=== PATIENT | female | born 1940 | race Caucasian/White ===

== ENCOUNTER → 2016-03-30 | Outpatient (CLI) | payer OTHER ==
[~2016-03-30] MED LIST: COEN100C28 PO; GLUCTAB18 PO; MULT-190 PO; MULTTAB58 PO; OMEG10007 PO
--- NOTE | 2016-03-30 13:50 | DIAGNOSTIC IMAGING REPORT ---
RIGHT WRIST MIN 3 VIEWS ROUTINE CLINICAL HISTORY: Right wrist pain. COMPARISON: Right wrist radiographs January 22, 2016 and February 27, 2016. FINDINGS: Alignment of the possible nondisplaced distal right radial fracture with extension to articular surface is unchanged. No additional fractures are identified. 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 IMPRESSION: 1. No change in alignment of the possible nondisplaced distal right radial fracture. 2. Severe arthritis of the right first carpometacarpal joint and triscaphe joint. Electronically signed by: Yanick Escalona M.D. 03/30/2016 1:49 PM
--- NOTE | 2016-03-30 15:08 | DIAGNOSTIC IMAGING REPORT ---
RIGHT ELBOW MIN 3 VIEWS CLINICAL HISTORY: Right elbow pain COMPARISON: 02/27/2016 DISCUSSION: There is been no change in alignment of the radial neck fracture. Early internal callus formation is suspected. IMPRESSION: No change in the alignment of the radial neck fracture. Electronically signed by: Jairo Hernandez M.D. 03/30/2016 3:06 PM
== END | disposition home or self-care (01) ==
LOC: C.RDSM 15:17
PROVIDERS: ATTEND Physical Medicine & Rehabilitation Sports Medicine
DX: S52.131A Displaced fracture of neck of right radius, initial encounter for closed fracture (principal); X58.XXXA Exposure to other specified factors, initial encounter; M18.11 Unilateral primary osteoarthritis of first carpometacarpal joint, right hand; M25.531 Pain in right wrist

== ENCOUNTER → 2016-04-01 | Outpatient (CLI) | payer OTHER | END | disposition home or self-care (01) | LOC: C.LAB1850 10:04 | PROVIDERS: ATTEND Obstetrics & Gynecology | DX: Z85.43 Personal history of malignant neoplasm of ovary (principal) ==

== ENCOUNTER → 2016-09-09 | Outpatient (CLI) | payer OTHER ==
--- NOTE | 2016-09-09 10:40 | DIAGNOSTIC IMAGING REPORT ---
ULTRASOUND RIGHT VENOUS DOPP LOWER EXT UNILAT CLINICAL HISTORY: Right leg pain. Cough. COMPARISON STUDY: No previous studies for comparison. FINDINGS: Real-time and color flow Doppler imaging were performed. Flow was seen within the femoral, popliteal and calf veins with no intraluminal thrombus demonstrated. The saphenous vein is patent. IMPRESSION: No evidence of right lower extremity DVT. Electronically signed by: Jairo Hernandez M.D. 09/09/2016 10:39 AM Dictated Date/Time: 09/09/2016 10:38 AM
--- NOTE | 2016-09-09 10:47 | DIAGNOSTIC IMAGING REPORT ---
CHEST 2 VIEWS ROUTINE HISTORY: Right foot/ANKLE SWELLING, R/O DVT, COUGH COMPARISON: Chest 02/08/2015. FINDINGS: Possible 1 cm nodule at the base of the right lower lobe. Mild bibasilar interstitial thickening. This is likely chronic. No new focal lung consolidations to suggest pneumonia. No evidence for pulmonary edema. The heart is normal in size. No pleural effusions. No pneumothorax. IMPRESSION: 1. No focal lung consolidations to suggest pneumonia. 2. Mild bibasilar interstitial thickening which is likely chronic. 3. Possible 1 cm nodule within the right lung base. Follow-up nonemergent chest CT is recommended for further evaluation. Electronically signed by: Jonathan Rebolledo M.D. 09/09/2016 10:46 AM Dictated Date/Time: 09/09/2016 10:44 AM
--- NOTE | 2016-09-14 12:41 | CODING QUERY MEDICAL NECESSITY ---
SUPPORTING DIAGNOSIS NEEDED A supporting diagnosis is required for the test/procedure performed on this patient in order for us to be reimbursed by the patient's insurance. Please provide a supporting diagnosis for the following test/procedure listed below next to the test name along with your signature. *If there is no additional diagnosis for this patient that would support the following test/procedure please document that below next to the test/procedure. Test(s)/Procedure(s) that require a supporting diagnosis: * US VENOUS UNIL LWR EXT DOPPLER DIAGNOSIS: Provider Signature: Date: Thank you Samantha Marcano [employer] Once completed, please kindly fax back to [phone] For questions please call [phone]
== END | disposition home or self-care (01) ==
LOC: C.ULTRBC 10:06
PROVIDERS: ATTEND Nurse Practitioner Family
DX: M25.471 Effusion, right ankle (principal); M79.89 Other specified soft tissue disorders; R05 Cough; Z85.43 Personal history of malignant neoplasm of ovary

== ENCOUNTER → 2016-09-28 | Outpatient (CLI) | payer OTHER | END | disposition home or self-care (01) | LOC: C.LAB1850 11:58 | PROVIDERS: ATTEND Obstetrics & Gynecology | DX: Z85.43 Personal history of malignant neoplasm of ovary (principal) ==

== ENCOUNTER → 2016-11-04 | Outpatient (CLI) | payer OTHER ==
--- NOTE | 2016-11-04 12:24 | MAMMOGRAPHY REPORT ---
BILATERAL DIGITAL SCREENING MAMMOGRAM TOMOSYNTHESIS WITH CAD: 11/04/2016 CLINICAL HISTORY: Routine screening. Patient has no complaints. TECHNIQUE: Breast tomosynthesis in addition to standard 2D mammography was performed. Current study was also evaluated with a Computer Aided Detection (CAD) system. COMPARISON: Comparison is made to exams dated: 09/12/2015 mammogram, 07/23/2014 mammogram, 07/21/2013 m ammogram, 06/21/2012 mammogram, 06/04/2011 mammogram, and 09/05/2010 mammogram - [facility] nter. BREAST COMPOSITION: There are scattered areas of fibroglandular density in both breasts. FINDINGS: There are scattered bilateral benign coarse and rim calcifications. Stable benign-appearin g masses in both breasts are unchanged in size and appearance dating back to at least 03/01/2007, the refore likely benign. No new suspicious mass, architectural distortion or cluster of microcalcificat ions is seen. IMPRESSION: ACR BI-RADS CATEGORY 1: NEGATIVE There is no mammographic evidence of malignancy. A 1 year screening mammogram is recommended. The pa tient will receive written notification of the results. Approximately 10% of breast cancers are not detected with mammography. A negative mammographic report should not delay biopsy if a clinically suggestive mass is present. Alena Chu M.D. ay/:11/04/2016 08:17:43 Origination Specialist: Latesha Nagy, [facility] letter sent: Normal 1/2 BI-RADS Code: ACR BI-RADS Category 1: Negative
== END | disposition home or self-care (01) ==
LOC: C.MAMM 07:35
PROVIDERS: ATTEND Obstetrics & Gynecology
DX: Z12.31 Encounter for screening mammogram for malignant neoplasm of breast (principal)

== ENCOUNTER → 2016-12-16 | Outpatient (CLI) | payer OTHER | END | disposition home or self-care (01) | LOC: C.LAB1850 14:31 | PROVIDERS: ATTEND Obstetrics & Gynecology | DX: Z85.43 Personal history of malignant neoplasm of ovary (principal) ==

== ENCOUNTER → 2016-12-28 | Outpatient (CLI) | payer OTHER ==
[~2016-12-28] MED LIST changes: +OPTIRAY 320 IV PRN
[2016-12-28 16:14] LABS: ISTAT CREATININE 0.7 mg/dl (0.6-1.3); ISTAT HEMOGLOBIN 14.6 g/dl (12.0-16.0); ISTAT IONIZED CALCIUM 1.2 mmol/l (1.12-1.32)
--- NOTE | 2016-12-28 17:17 | DIAGNOSTIC IMAGING REPORT ---
ABD/PELVIS IV AND ORAL CONT HISTORY: 76 years-old Female R19.00 Pelvic mass COMPARISON: CT abdomen and pelvis 06/27/2013 TECHNIQUE: Multiple axial CT images of the abdomen and pelvis were obtained following the administration of both IV and oral contrast. 120 mL Optiray 320 was administered. A dose lowering technique was used consistent with the principals of PEPPER. FINDINGS: Ovoid circumscribed 9 x 7 mm noncalcified pulmonary nodule is seen within the posterior basal segment right lower lobe, unchanged from comparison study 06/27/2013. Mild subsegmental bibasilar atelectasis/scarring involves the lung bases. There is chronic atelectasis with volume loss involving the medial segment right middle lobe which is also unchanged. There is no pneumoperitoneum identified. The imaged inferior cardiac chambers are unremarkable. The liver, spleen, pancreas and adrenal glands are within normal limits. Gallbladder is moderately contracted. Multiple low attenuating lesions of the kidneys bilaterally suggests cysts, largest of which is located within the superior pole left kidney, 4.3 cm with adjacent multifocal parenchymal thinning. No renal calculi or hydronephrosis. Ureters and urinary bladder are unremarkable. Prior hysterectomy. There are phleboliths of the pelvis. Moderate mixed plaquing of the abdominal aorta. No bulky retroperitoneal adenopathy. There is no bowel obstruction or focal bowel wall thickening. Sigmoid colon is tortuous. The appendix is not seen and may be surgically absent. No ascites. Ventral subumbilical abdominal wall hernia contains fat, diastases 1.7 cm. Small periumbilical hernia is noted containing fat and a loop of nonobstructive small bowel, diastases approximately 3 cm. Retroareolar nodules involve the bilateral breasts with adjacent calcifications or biopsy clips, largest the left, 1.9 cm and on the right 1.0 cm. Advanced facet arthropathy is seen within the lower lumbar spine. Severe intervertebral disc space narrowing at L5-S1. IMPRESSION: 1. Small periumbilical hernia contains mesenteric fat and a nonobstructed loop of ileum, diastases 3.0 cm. Additionally, there is a smaller supraumbilical fat filled ventral abdominal wall hernia as above. 2. Stable size and appearance of a 9 mm circumscribed solid ovoid pulmonary nodule of the posterior basal segment right lower lobe, unchanged from comparison dated 06/27/2013 suggesting benign etiology. Additionally, there is chronic unchanged volume loss with atelectasis involving the medial segment right middle lobe. 3. Prior hysterectomy. 4. Additional incidental findings as above. The above report was generated using voice recognition software. It may contain grammatical, syntax or spelling errors. Electronically signed by: Shayne Whitmore M.D. 12/28/2016 5:15 PM Dictated Date/Time: 12/28/2016 5:06 PM
== END | disposition home or self-care (01) ==
LOC: C.CTS 13:41
PROVIDERS: ATTEND Obstetrics & Gynecology
DX: R19.00 Intra-abdominal and pelvic swelling, mass and lump, unspecified site (principal); K42.9 Umbilical hernia without obstruction or gangrene; R91.8 Other nonspecific abnormal finding of lung field

== ENCOUNTER → 2017-03-08 | Outpatient (CLI) | payer OTHER ==
[~2017-03-08] MED LIST changes: -OPTIRAY 320 IV PRN
--- NOTE | 2017-03-08 14:27 | DIAGNOSTIC IMAGING REPORT ---
L-SPINE MIN 4 VIEWS ROUTINE CLINICAL HISTORY: 77 years-old Female presenting with LT LOW BACK PAIN. TECHNIQUE: Frontal, bilateral oblique, lateral, and coned in lateral views of the lumbar spine were obtained. COMPARISON: Correlation made to CT of the abdomen and pelvis from 12/28/2016. FINDINGS: No significant scoliosis. Normal lumbar lordosis. Vertebral bodies maintain normal height and alignment. Intervertebral disc height loss noted at T12-L1, L4-5, and L5-S1. Calcification within the disc space at L4-5 also noted. Extensive facet arthropathy primarily in the lower lumbar spine. Varying degrees of osseous neural foraminal narrowing suggested, most severe in the lower lumbar spine. No pars defect evident. No compression deformity or subluxation. Multiple surgical clips project over the mid abdomen. Pelvic phleboliths noted. Mild stool burden throughout the colon. IMPRESSION: 1. Multilevel degenerative change most prominently in the lower lumbar spine were there is likely osseous neural foraminal narrowing. This was also appreciated on prior CT from December. No radiographic evidence of a compression deformity. Electronically signed by: Carrington Aquino M.D. 03/08/2017 2:25 PM Dictated Date/Time: 03/08/2017 2:23 PM
== END | disposition home or self-care (01) ==
LOC: C.RAD1850 14:07
PROVIDERS: ATTEND Family Medicine
DX: M54.5 Low back pain (principal)

== ENCOUNTER → 2017-05-31 | Outpatient (CLI) | payer OTHER ==
[2017-05-31 12:23] LABS: CREATININE 0.78 mg/dl (0.60-1.20)
== END | disposition home or self-care (01) ==
LOC: C.LAB1850 10:32
PROVIDERS: ATTEND Obstetrics & Gynecology
DX: R19.00 Intra-abdominal and pelvic swelling, mass and lump, unspecified site (principal)

== ENCOUNTER → 2017-06-03 | Outpatient (CLI) | payer OTHER | END | disposition home or self-care (01) | LOC: C.LAB1850 10:48 | PROVIDERS: ATTEND Obstetrics & Gynecology | DX: C56.9 Malignant neoplasm of unspecified ovary (principal) ==

== ENCOUNTER → 2017-11-01 | Outpatient (CLI) | payer OTHER | END | disposition home or self-care (01) | LOC: C.LAB1850 11:37 | PROVIDERS: ATTEND Obstetrics & Gynecology | DX: C56.9 Malignant neoplasm of unspecified ovary (principal) ==

== ENCOUNTER → 2017-11-08 | Outpatient (CLI) | payer OTHER | END | disposition home or self-care (01) | LOC: C.PAPS 16:51 | PROVIDERS: ATTEND Obstetrics & Gynecology | DX: Z85.43 Personal history of malignant neoplasm of ovary (principal) ==

== ENCOUNTER → 2017-11-10 | Outpatient (CLI) | payer OTHER ==
--- NOTE | 2017-11-11 15:42 | MAMMOGRAPHY REPORT ---
BILATERAL DIGITAL SCREENING MAMMOGRAM TOMOSYNTHESIS WITH CAD: 11/10/2017 CLINICAL HISTORY: Routine screening. Patient has no complaints. Routine screening. Patient has no com plaints. TECHNIQUE: The study was acquired using full field digital technology and interpreted from soft copy. Breast tomosynthesis in addition to standard 2D mammography was performed. Current study was also ev aluated with a Computer Aided Detection (CAD) system. COMPARISON: Comparison is made to exams dated: 11/04/2016 mammogram, 09/12/2015 mammogram, 07/23/2014 ma mmogram, 07/21/2013 mammogram, 06/21/2012 mammogram, and 06/04/2011 mammogram - [facility]. BREAST COMPOSITION: There are scattered areas of fibroglandular density in both breasts. FINDINGS: There are possible calcifications within the right anterior breast at approximately 6 to 7:00, for wh ich spot magnification views are recommended for further evaluation. The remainder of both breasts are stable compared to prior exams, without suspicious masses, calcific ations, or areas of architectural distortion noted. Bilateral masses/asymmetries and other scattered bilateral calcifications are stable compared to multiple prior exams. A linear scar marker overlies the right anterior breast. IMPRESSION: ACR BI-RADS CATEGORY 0: INCOMPLETE EVALUATION: NEED ADDITIONAL IMAGING EVALUATION Right anterior breast calcifications, for which additional imaging evaluation is recommended. The pa tient will be called to schedule an appointment. Some breast cancers are not detected with mammography. A negative mammographic report should not mireille y biopsy if a clinically suggestive mass is present. Suzanne Nugent M.D. ah/:11/10/2017 16:45:40 Cloth Bleaching Range Back Tender: RT Jaky(Trevor)(M)(BD), [facility] letter sent: Addl Imaging 0 BI-RADS Code: ACR BI-RADS Category 0: Incomplete Evaluation: Need Additional Imaging Evaluation
== END | disposition home or self-care (01) ==
LOC: C.MAMM 07:27
PROVIDERS: ATTEND Obstetrics & Gynecology
DX: Z12.31 Encounter for screening mammogram for malignant neoplasm of breast (principal); R92.1 Mammographic calcification found on diagnostic imaging of breast

== ENCOUNTER → 2017-11-17 | Outpatient (CLI) | payer OTHER ==
--- NOTE | 2017-11-17 13:38 | MAMMOGRAPHY REPORT ---
UNILATERAL RIGHT DIGITAL DIAGNOSTIC MAMMOGRAM: 11/17/2017 CLINICAL HISTORY: Callback from screening mammogram for right breast calcifications. The patient repo rts a remote history of ovarian cancer. TECHNIQUE: Spot magnification right cc and ML views were obtained. COMPARISON: Comparison is made to exams dated: 11/10/2017 mammogram, 11/04/2016 mammogram, 09/12/2015 ma mmogram, 07/23/2014 mammogram, 07/21/2013 mammogram, and 06/04/2011 mammogram - [facility] ter. BREAST COMPOSITION: There are scattered areas of fibroglandular density in right breast. FINDINGS: Spot magnification views of the right breast demonstrate a new small 6 mm cluster of faint punctate a nd amorphous calcifications in the right lower outer quadrant anteriorly. The calcifications are ind eterminant and stereotactic biopsy is recommended for further evaluation. IMPRESSION: ACR BI-RADS CATEGORY 4: SUSPICIOUS New small 6 mm cluster of punctate and amorphous calcifications in the right lower outer quadrant. T he calcifications are indeterminate and stereotactic biopsy is recommended for further evaluation. A phone call was made to the physician's office to confirm faxed results were received. The patient has been verbally notified of the results. She tentatively scheduled the biopsy before l eaving the department. Some breast cancers are not detected with mammography. A negative mammographic report should not mireille y biopsy if a clinically suggestive mass is present. Suzanne Nugent M.D. /:11/17/2017 10:13:31 Beef Cattle Grazier: RT Malcom(R)(M), [facility] letter sent: Abnormal 4/5 BI-RADS Code: ACR BI-RADS Category 4: Suspicious
== END | disposition home or self-care (01) ==
LOC: C.MAMM 09:30
PROVIDERS: ATTEND Obstetrics & Gynecology
DX: R92.1 Mammographic calcification found on diagnostic imaging of breast (principal); Z85.43 Personal history of malignant neoplasm of ovary

== ENCOUNTER 2022-09-02 06:20 | Observation (INO) ==
--- NOTE | 2022-07-28 14:48 | PAT Medication Instructions ---
Medication Instructions Date of Service July 28, 2022 Home Medications fenofibrate 160 mg tablet 160 mg PO QAM glucosamine-chondroitin 250 mg-200 mg tablet (Osteo Bi-Flex) 1 tab PO BID vit C 250 mg-vit E 90 mg-zinc 40 mg-copper 1 [id number]-rykrtu capsule (PreserVision AREDS-2) 1 tab PO BID tamoxifen 20 mg tablet 20 mg PO QAM cholecalciferol (vitamin D3) 25 mcg (1,000 unit) capsule 25 mcg PO QAM polyethylene glycol 3350 17 gram/dose oral powder (Miralax) 17 g PO DAILY PRN Constipation multivitamin 1 tab PO QAM solifenacin 10 mg tablet 10 mg PO HS ASK your prescriber and surgeon tamoxifen 20 mg tablet 20 mg PO QAM STOP taking 2 weeks before surgery glucosamine-chondroitin 250 mg-200 mg tablet (Osteo Bi-Flex) 1 tab PO BID vit C 250 mg-vit E 90 mg-zinc 40 mg-copper 1 [id number]-amqhjn capsule (PreserVision AREDS-2) 1 tab PO BID STOP taking 24 hours before surgery fenofibrate 160 mg tablet 160 mg PO QAM DO NOT take the morning of surgery multivitamin 1 tab PO QAM cholecalciferol (vitamin D3) 25 mcg (1,000 unit) capsule 25 mcg PO QAM polyethylene glycol 3350 17 gram/dose oral powder (Miralax) 17 g PO DAILY PRN Constipation Take evening before surgery solifenacin 10 mg tablet 10 mg PO HS Other Notes NOTHING TO EAT OR DRINK AFTER MIDNIGHT If you have any questions please call us at [phone] or [phone] or [phone] or [phone]
--- NOTE | 2022-08-03 09:55 | Anesthesiology Consultation ---
Date of Service August 03, 2022 Assessment & Plan (1) Encounter for pre-operative examination: - COVID screening: Per assessment on 08/03: No known COVID-19 positive contacts or current COVID-19 related symptoms. Travel screen negative. Patient vaccinated. At surgeon discretion if preop Covid testing being done. - Outpatient joint assessment: Pt currently scheduled for inpatient pathway. If surgeon requests review for outpatient joint pathway, patient is not recommended candidate for outpatient joint program from anesthesia standpoint. - RUE limb restriction - Cardiology visit (07/28/22): "Preop examination.. She had an extensive work-up in 2020 with a normal echocardiogram with normal LA pressures and pulmonary artery pressures and a normal BNP. Her EKG today reveals sinus rhythm with borderline left ventricular prejury and secondary ST changes. The is a possible septal infarct. Compared to the prior EKG there is no significant change. If you look at her CAT scan previously done at [facility] she did have groundglass opacities in both bases. I discussed with her I think our job is to rule out obstructive coronary artery disease as well as other potential cardiac causes for her dyspnea. We will check her pulmonary artery pressures as well as her left atrial pressures at the time of a stress echo.. if her BNP is normal and her stress echo is normal will be reassuring that her dyspnea is noncardiac. At that point I would consider pulmonary function tests." BNP on 07/28/22 was 64 (WNL). - Awaiting upcoming cardiology-ordered stress test and final cardiology preop recommendations ([facility] cardiology, stress test scheduled 08/12). - Awaiting surgeon-ordered PCP preop evaluation (Mini Wilson/[facility], appt 08/06). Chart Review Chart Review: Patient seen in Pre Admission Testing Teaching & Discussion Pre-Anesthesia Teaching/Discussion Notes: Instructed NPO after midnight before surgery,except medications with 15 cc of water. Medication instructions provided according to the PAT guidelines. History Surgery Operation Date: 08/26/22 07:00 Proposed Procedures p Left Total Knee Arthroplasty - Dilip Queen MD Height/Weight Height: 5 ft 3 in Weight: 68.9 kg Allergies Allergy/AdvReac Type Severity Reaction Status Date / Time hydrocodone Allergy Intermediate Hives Verified 07/31/22 14:12 cephalexin AdvReac Mild Diarrhea Verified 07/31/22 14:12 Medications Home Medications Medication Instructions Recorded Confirmed Last Taken fenofibrate 160 mg tablet 160 mg PO QAM 12/13/17 07/24/22 11/05/18 glucosamine-chondroitin 250 mg-200 1 tab PO BID 12/13/17 07/24/22 11/05/18 mg tablet (Osteo Bi-Flex) vit C 250 mg-vit E 90 mg-zinc 40 1 tab PO BID 12/13/17 07/24/22 11/05/18 mg-copper 1 [id number] capsule (PreserVision AREDS-2) tamoxifen 20 mg tablet 20 mg PO QAM 03/31/18 07/24/22 11/05/18 cholecalciferol (vitamin D3) 25 25 mcg PO QAM 09/27/20 07/24/22 Unknown mcg (1,000 unit) capsule polyethylene glycol 3350 17 17 g PO DAILY PRN Constipation 02/17/22 07/24/22 Unknown gram/dose oral powder (Miralax) multivitamin 1 tab PO QAM 07/24/22 07/24/22 Unknown solifenacin 10 mg tablet 10 mg PO HS 07/24/22 07/24/22 Unknown Past Medical History Medical History Breast cancer, right 2018, s/p surgery, radiation and tamoxifen Chronic lower back pain Gastric ulcer Approximately GERD (gastroesophageal reflux disease) Hx, no recent issues per patient Hx of ovarian cancer 2001, s/p chemo, MOLLY-BSO Hyperlipidemia Macular degeneration Osteoarthritis Sacroiliitis Exercise / Class Metabolic Activity III < 4 Walking/Shop/Light housework (one FS (no CP, + occasional SOB)) Past Family History Family History Sister Breast cancer Cancer Mother Cardiac disorder Father Cardiac disorder Family/Other Prostate cancer Breast cancer 2 nieces Lung cancer Brother Cancer Other No family history of adverse response to anesthesia Denies family history of Ovarian cancer Colorectal cancer Past Surgical History Surgical History H/O bilateral cataract extraction H/O blepharoplasty H/O dilation and curettage History of anesthesia reaction "Slow to wake"/no known hx of reintubation History of back surgery Transpedicular spinal decompression History of esophagogastroduodenoscopy (EGD) History of tonsillectomy History of total abdominal hysterectomy and bilateral salpingo-oophorectomy Hx of appendectomy Hx of colonoscopy Hx of foot surgery RIGHT FOOT Hx of total knee arthroplasty RIGHT S/P excision of fibroadenoma of breast Prior benign breast biopsies Status post right breast lumpectomy Past Anesthesia History No Family Hx of Anesthesia Complications and Other ("Slow to wake"/no known hx of reintubation) History of PONV No Hx of PONV and No Hx of Motion Sickness Social History Smoking Status: Never smoker Do You Dip or Chew Tobacco: No Hx Alcohol Use: Yes Alcohol type: wine and hard liquor alcohol intake frequency: holidays/special occasions only Hx Substance Use: No substance use type: does not use Review of Systems Patient denies chest pain, shortness of breath, fever, chills, cough, wheezing, palpitations. Physical Exam Vital Signs VITALS BP 113/75 P 67 TEMP 98.1 SP02 95%RA RESP 16 PHYSICAL Full cervical extension range of motion. Full TMJ range of motion. TMD 2.5 finger breaths (small chin) Mallampati Score 2 Dentition: lower partial Lungs: clear throughout to auscultation Cardiac: regular rate and rhythm, no murmurs noted Spine: normal Carotid arteries: negative bruit Extremities: no LE edema Lab Results Anesthesia Preop Results Results Anesthesia Widget: WBC 4.47 K/ul (4.8-10.8) L 08/03/22 Hgb 12.2 g/dl (12.0-16.0) 08/03/22 Hct 36.8 % (37.0-47.0) L 08/03/22 Plt 163 K/uL (130-400) 08/03/22 Na 139 mmol/L (136-145) 08/03/22 K 3.7 mmol/L (3.5-5.1) 08/03/22 Cl 105 mmol/L (98-107) 08/03/22 CO2 29 mmol/L (21-32) 08/03/22 BUN 27 mg/dl (6-23) H 08/03/22 Creat 0.94 mg/dl (0.6-1.2) 08/03/22 Glucose Level 110 mg/dl (70-99(Fasting)) H 08/03/22 PT 11.7 Seconds (9.0-12.0) 08/03/22 PTT 26.2 Seconds (21.0-31.0) 08/03/22 INR 1.1 (0.9-1.1) 08/03/22 Urine Color Yellow 08/03/22 Urine Appearance Clear (Clear) 08/03/22 Urine pH 5.5 (4.5-7.5) 08/03/22 Urine Specific [place] 1.023 (1.000-1.030) 08/03/22 Urine Protein Negative (Negative) 08/03/22 Urine Glucose (UA) Negative (Negative) 08/03/22 Urine Ketones Negative (Negative) 08/03/22 Urine Blood Negative (Negative) 08/03/22 Urine Nitrite Negative (Negative) 08/03/22 Urine Bilirubin Negative (Negative) 08/03/22 Urine Urobilinogen Negative (Negative) 08/03/22 Urine Leukocyte Esterase Negative (Negative) 08/03/22 Blood Type A Positive 08/03/22 Antibody Screen NEGATIVE 08/03/22 Testing Electrocardiogram Date: 07/28/22 Normal sinus rhythm at 64 bpm. Minimal voltage criteria for LVH, may be normal variant. Septal infarct, age undetermined. Nonspecific ST changes. No significant change compared to 08/15/2018 per manager cancer comparison. Chest X-Ray Date: 08/03/22 FINDINGS: Cardiac silhouette is upper limits of normal in size. No pneumothorax, pleural effusion or overt pulmonary edema. Mild left hemidiaphragmatic elevation with subsegmental bibasilar atelectasis. The previously noted subcentimeter nodule within the right lower lobe is not definitively seen by radiography. Calcified loose body within the left subscapularis recess. Degenerative changes of the shoulders and spine with surgical clips in the abdomen. IMPRESSION: No acute process. Echocardiogram Date: 07/29/20 LVEF 55%. No regional motion abnormality. Grade 1 diastolic dysfunction. Lipomatous atrial septum. Appears intact. Top normal ascending aorta (3.6 cm). No LVH. Mild TR. Compared to previous study 01/04/14, there is no significant change. COVID-19 Risk Screen Screening Information COVID-19 Screen Date: 08/03/22 Exposure 21 Days Family/Household +COVID Last 21 Days: No Exposure 10 Days Any COVID Exposure Last 10 Days: No Symptoms Last 10 Days Experienced COVID Sx Last 10 Days: No + COVID 0-90 Days COVID + in Last 0-90 Days: No
[~2022-09-02 06:20] MED LIST changes: -COEN100C28 PO; -GLUCTAB18 PO; +LR 500ML BOLUS, THEN 15ML/HR IV SCH; +LR 60ML/HR IV SCH; -MULT-190 PO; -MULTTAB58 PO; -OMEG10007 PO; +ROPIVACAINE 0.5% HCL/PF 150 MG, BUPIVACAINE 0.75% MPF 20 ML, EPINEPHrine 0.15 MG, Ketor... INFIL SCH; +TRANEXAMIC ACID 1,000 MG **IV Pre-op IV SCH; +ceFAZolin 2000MG 2,000 MG/15 ML SYR IV SCH
[2022-09-02] MEDS ORDERED: BUPIVACAINE 0.5 % 5 MG/1 ML PF 10ML VIAL ONE (06:21)
[2022-09-02] MEDS ORDERED: EPINEPHrine INJ 1 MG/ML AMP ONE (06:21)
[2022-09-02] MEDS ORDERED: ROPIVACAINE 0.5% 5 MG/ML 30 ML VIAL ONE (06:22)
--- NOTE | 2022-09-02 06:27 | History & Physical Bridge Note ---
Date of Service September 02, 2022 History & Physical Bridge Note I have examined the patient, reviewed the History & Physical and in the interval since the performance of the History & Physical I have noted the following changes of clinical significance:consent verified /site marked. no changes noted
[2022-09-02] MEDS ORDERED: fentaNYL citrate PF 100 MCG/2 ML VIAL ONE (08:17)
[2022-09-02] MEDS ORDERED: MIDAZOLAM HCL 1 MG/ML 2ML VIAL ONE (08:17)
[2022-09-02] MEDS ORDERED: PROPOFOL IV EMULSION 10 MG/ML 20 ML VIAL IV ONE (08:19)
[2022-09-02] MEDS ORDERED: ONDANSETRON INJ 2 MG/ML 2 ML VIAL ONE (08:20)
[2022-09-02] MEDS ORDERED: DEXAMETHASONE SOD INJ 4 MG/ML VIAL ONE (08:20)
[2022-09-02] MEDS ORDERED: ORTHO JOINT ANESTHETIC ONE (08:36)
[2022-09-02] MEDS ORDERED: ONDANSETRON INJ 2 MG/ML 2 ML VIAL IV PRN ×2 (08:40→11:52)
[2022-09-02] MEDS ORDERED: ATROPINE SULFATE 0.1 MG/ML 10ML SYR IV PRN (08:40)
[2022-09-02] MEDS ORDERED: ePHEDrine sulfate 50 MG/ML AMP IV PRN (08:40)
[2022-09-02] MEDS ORDERED: fentaNYL citrate PF 100 MCG/2 ML VIAL IV PRN (08:40)
[2022-09-02] MEDS ORDERED: TRANEXAMIC ACID 100 MG/ML 10 ML VIAL IV ONE (09:51)
--- NOTE | 2022-09-02 10:23 | Post Operative Brief Note ---
Immediate Post Op Note v1 Date of Surgery September 02, 2022 Pre & Post Diagnosis Operation Date: 09/02/22 08:50 Pre-Op Diagnosis: Left Knee Degenerative Joint Disease Post-Op Diagnosis: Left Knee Degenerative Joint Disease I identified the patient and participated in the time-out.: Yes Procedure Operation Date: 09/02/22 08:50 Actual Procedures p Left Total Knee Arthroplasty(Left) - Dilip Queen MD Surgeon Dilip Queen MD [employer] Milana/Destinee Estimated Blood Loss 100 Findings Consistent with Post-Op Diagnosis Complications none
--- NOTE | 2022-09-02 10:26 | Operative Report ---
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 Consent verified site verified antibiotics per and is being given. Description of Procedure Operation patient identified site verbally consented by antibiotics. We given a right and left lower extremities were examined. They both had the extension near 0 with the right flexed about 110 to the left about 115. Left lower extremity was then prepped and draped in his routine fashion. Tourniquet plated to 3-2 150 to 275 mmHg for total of 48 minutes. Midline exposure utilized parapatellar arthrotomy performed. Extensive set of Vitas excised. Extensive osteophytes resected. Distal femur entered cruciates resected tibia subluxated menisci resected. Distal femur resected 12 mm proximal tibia 4 mm the extension gap was excellent. The femur was sized between a true 4 and a very very big 3 so was measured for and cut for there was no notching. Flexion gap was then checked and it was excellent. All 5 spacer was excellent for both extension and flexion gaps. Box cut was then made and the size 4 narrow fit well. The tibia was broached and reamed for a size 3 since that was a better fit on the proximal tibial surface and with the size 5-1/2 for spacer there was excellent range of motion excellent midrange flexion stability excellent extension patella tracked well. The patella was then resected leaving 15 mm and a 38 button trial was seated the fit well and tracked well. All remaining trial elements were then removed wound irrigated with Betadine and Pulsavac and then the permanent cemented into position tibia femur and patella in that order. After 12 minutes tourniquet deflated after 40 minutes knee flexed minor cement removal required. Some bone wax was placed around the margins of the femur. This was to cover cancellous bone and to keep it from bleeding. Once this was all cleaned out the trial spacer removed the wound irrigated with Betadine Pulsavac and permanent liner seated and then the knee reduced and closed at 45 degrees with #2 Vicryl 2-0 Vicryl standstill clips. Summary of implants size 4 posterior. Substi tuting femur size 3 tibia posterior cruciate substituting size 4 spacer 12.5 mm thick size 38 oval dome patella. 2 bags of Palacos G cement. I attest to the content of the Intraoperative Record and any orders documented therein. Any exceptions are noted below.
--- NOTE | 2022-09-02 10:37 | Operative Report ---
Post Operative Report Pre & Post Diagnosis Operation Date: 09/02/22 08:50 Pre-Op Diagnosis: Left Knee Degenerative Joint Disease Post-Op Diagnosis: Left Knee Degenerative Joint Disease I identified the patient and participated in the time-out.: Yes Procedure Operation Date: 09/02/22 08:50 Actual Procedures p Left Total Knee Arthroplasty(Left) - Dilip Queen MD Surgeon CLARK Queen MD Lumber Carrier Milana/Destinee GALLEGO Estimated Blood Loss 100 Findings Consistent with Post-Op Diagnosis see operative report Specimens see operative report Drains none Complications none Disposition Accompanied Patient To Recovery: Yes Indications This 82 year old female presented to the office with complaints of persisting left knee pain. She had tried conservative care measures including viscosupplementation injections, without improvement. She elected to proceed with surgical intervention after being educated about potential risks and outcomes. Preoperative imaging was obtained. She has a history of previous right total knee arthroplasty and has done very well with it. She elected to proceed with the same on the left. Description of Procedure The patient was administered a spinal anesthetic and then taken to the operating room where she was given sedation. She was prepped and draped in the usual sterile fashion. Please see Dr. Queen's operative report for specifics of the procedure. I was present for the entire case from initial patient positioning through final wound closure. Assistance was provided in tissue retraction, hemostasis, trial implant placement, final implant placement, and final wound closure. The patient was taken to the recovery room in satisfactory condition. I attest to the content of the Intraoperative Record and any orders documented therein. Any exceptions are noted below.
--- NOTE | 2022-09-02 10:40 | Discharge Summary ---
Date of Service September 02, 2022 Admission HPI Per Admitting Provider Admitted for left total knee replacement. Hospital course to this point has been uneventful. Principal Diagnosis Status post left total knee replacement. Discharge Exam Please see preoperative H&P at this point postop her knee is near 0 extension and flexion to 110 degrees. Discharge Data Allergies Allergy/AdvReac Type Severity Reaction Status Date / Time hydrocodone Allergy Intermediate Hives Verified 09/02/22 06:44 cephalexin AdvReac Mild Diarrhea Verified 09/02/22 06:44 Procedures Performed Operation Date: 09/02/22 08:50 Actual Procedures p Left Total Knee Arthroplasty(Left) - Dilip Queen MD Ordered Studies 09/02/22 05:00 US - OR guided needle placemen Routine Hospital Course (1) Status post left knee replacement: Uneventful at this point time continue with postop care pathway discharge to home if she does well overnight. Plan Case management to set up home services. DVT prophylaxis per protocol. Total Time Total Time Spent Total Time Spent (In Minutes): 15 minutes Discharge Plan Discharge Items Reason For Visit: Left Knee Degenerative Joint Disease Discharge Diagnosis: same Condition on Discharge: Good Activity: Per Instructions section Lifting: No more than 10 pounds Bathing: Keep incision dry Sexual Activity: When tolerated Excercise/Sports: Wait until after follow-up appointment Driving/Machine Use: Resume 3 days after discharge Weightbearing: Full weightbearing Non-emergency contact: Surgeon Call non-emergency contact if: your temperature is above 101.5, your wound has increased redness, your wound has increased drainage and your wound pain has increased Follow-Up/Referrals: Armen Lockett MD [Primary Care Provider] - Diet: Resume previous diet Addtl Attending Provider Instructions: DIET: * Resume previous diet. MEDICATIONS: * Please take your prescriptions as instructed at your pre-op appointment and/or see medication discharge instructions listed above. * If concerns develop, call your physician's office at . SPECIAL CARE INSTRUCTIONS: * Ice/Elevate as instructed. * Keep dressing clean, dry, intact. * Your surgical extremity may be discolored due to prepping agents used on the skin. A bluish-green tint is a normal variant and should not cause alarm. Call your doctor at [phone] if: * Temperature above 101 degrees * Pain not relieved by pain medicine ordered * There is increased drainage or redness from any incision * You have any unanswered questions, problems or concerns. FOLLOW UP VISIT: * If not already scheduled, please call the office at to schedule a follow-up appointment. Pending Studies at Discharge: Yes (Bone pathology) Stand-Alone Forms: My [facility] Prescriptions: No Action tamoxifen 20 mg tablet 20 mg PO QAM polyethylene glycol 3350 [Miralax] 17 gram/dose powder 17 g PO DAILY PRN (Reason: Constipation) cholecalciferol (vitamin D3) 25 mcg (1,000 unit) capsule 25 mcg PO QAM fenofibrate 160 mg Tablet 160 mg PO QAM glucosamine-chondroitin [Osteo Bi-Flex] 250-200 mg Tablet 1 tab PO BID PreserVision AREDS-2 [id number] Capsule 1 tab PO BID multivitamin Tablet 1 tab PO QAM solifenacin 10 mg Tablet 10 mg PO HS Admission Data Attending Provider: Dilip Queen Primary Care Provider: Armen Lockett
--- NOTE | 2022-09-02 10:43 | Orthopedic Progress Note ---
Date of Service September 02, 2022 Assessment & Plan (1) Status post left knee replacement: Plan: Uneventful at this point time continue with postop care pathway discharge to home if she does well overnight. Plan Case management to set up home services. DVT prophylaxis per protocol. Admission and Anticipated Discharge Date Admission Date: 09/02/2022 anticipated discharge 09/03/2022 if does well overnight. Subjective Tolerated total knee replacement well. She is resting comfortably denies chest pain shortness of breath fever chills nausea vomiting or headache. Physical Exam Physical Exam: Please see preoperative H&P at this point postop her knee is near 0 extension and flexion to 110 degrees. Results & Data Vital Signs (Past 12 Hours) Vital Signs Temp Pulse Resp BP Pulse Ox O2 Del Method 09/02/22 06:50 36.8 C 67 20 143/92 H 95 Room Air
--- NOTE | 2022-09-02 11:30 | Anesthesiology Progress Note ---
Date of Service September 02, 2022 Anesthesia Post Procedure Vital Signs Vital Signs: Temp Pulse Pulse Resp BP Pulse Ox O2 Del Method 09/02/22 11:20 36.4 C L 59 L 16 120/68 98 Room Air 09/02/22 11:10 63 15 119/76 98 Room Air 09/02/22 11:00 58 L 15 116/81 99 Room Air 09/02/22 10:50 58 L 14 122/79 97 Room Air 09/02/22 10:40 58 L 14 130/79 97 Room Air 09/02/22 10:34 36.0 C L 73 13 118/74 95 Room Air 09/02/22 06:50 36.8 C 67 20 143/92 H 95 Room Air Pain Intensity Left Knee: Pain Intensity: 4 Transfer of Care Handoff Completed per policy Notes Mental Status: alert / awake / arousable Patient Amnestic to Procedure: Yes Nausea / Vomiting: adequately controlled Pain: adequately controlled Airway Patency, RR, SpO2: stable & adequate BP & HR: stable & adequate Hydration State: stable & adequate Neuraxial Anesthesia: was administered and sensory block is resolving Anesthetic Complications: no major complications apparent
[2022-09-02] MEDS ORDERED: HYDROmorphone INJ 0.5 MG/0.5 ML SYR IV PRN (11:52)
[2022-09-02] MEDS ORDERED: bisacodyL 10 MG SUPP PR PRN (11:52)
[2022-09-02] MEDS ORDERED: METOCLOPRAMIDE HCL INJ 5 MG/ML 2 ML VIAL IV PRN (11:52)
[2022-09-02] MEDS ORDERED: ALUMINUM/MAGNESIUM SUSP 30 ML UDC PO PRN (11:52)
[2022-09-02] MEDS ORDERED: oxyCODONE HCL IR 5 MG TAB (IMMEDIATE RELEASE) PO PRN (11:52)
[2022-09-02] MEDS ORDERED: POLYETHYLENE (MIRALAX) 17 GM PACK PO PRN (11:52)
[2022-09-02] MEDS ORDERED: VANCOMYCIN CONSULT ACTIVE PRN (11:52)
[2022-09-02] MEDS ORDERED: SODIUM CHLORIDE 0.9% 1000ML 1,000 ML IV SCH (11:52)
[2022-09-02] MEDS ORDERED: MAGNESIUM HYDROXIDE SUSP 30 ML UDC PO PRN (11:52)
[2022-09-02] MEDS ORDERED: NALOXONE HCL 0.4 MG/1 ML VIAL/CARP IV PRN (11:52)
[2022-09-02] MEDS ORDERED: diphenhydrAMINE 50 MG/ML VIAL IV PRN (11:52)
[2022-09-02] MEDS ORDERED: VANCOMYCIN HCL 1,000 MG in SODIUM CHLORIDE 0.9% 250 ML IV ONE (12:15)
--- NOTE | 2022-09-02 12:52 | XRay Report ---
XR knee LT 1 or 2V routine CLINICAL HISTORY: Surgical Post Op TECHNIQUE: 2 views of the left knee were obtained. Comparison: Comparison is made to knee radiographs 04/03/2022 FINDINGS: Patient is status post total knee arthroplasty with expected postsurgical changes including soft tiss ue swelling and subcutaneous emphysema. No periarticular lucency or hardware fracture is seen. IMPRESSION: Expected postoperative appearance status post placement of total knee arthroplasty. ACT 112: Negative or not required by law. Electronically signed by: Raul Webster M.D. 09/02/2022 12:51 PM
[2022-09-02] MEDS: KETOROLAC TROMETHAMINE 15 MG/ML VIAL IV SCH ×3 (13:04→23:06)
[2022-09-02] MEDS: ACETAMINOPHEN 500 MG TAB PO SCH ×2 (13:05→21:48)
[2022-09-02] MEDS ORDERED: ORTHO WARFARIN NOMOGRAM SCH (14:00)
[2022-09-02] MEDS ORDERED: WARFARIN SOD 5 MG TAB PO ONE (16:00)
[2022-09-02] MEDS: FERROUS GLUCONATE 324 MG TAB PO SCH (16:57)
[2022-09-02] MEDS: ceFAZolin 2000MG 2,000 MG/15 ML SYR IV SCH (16:57)
[2022-09-02] MEDS: ASCORBIC ACID 500 MG TAB PO SCH (16:57)
[2022-09-02] MEDS ORDERED: OXYBUTYNIN CHLORIDE XL 5 MG TABCR PO SCH (21:00)
[2022-09-02] MEDS ORDERED: SENNA 8.6 MG TAB PO SCH (21:00)
[2022-09-02] MEDS: DOCUSATE SODIUM 100 MG CAP PO SCH (21:49)
[2022-09-02] MEDS ORDERED: MELATONIN 3 MG TAB PO PRN (22:03)
[2022-09-03] MEDS: ceFAZolin 2000MG 2,000 MG/15 ML SYR IV SCH (01:40)
[2022-09-03 03:31] VITALS: TEMP 97.5
[2022-09-03] MEDS: KETOROLAC TROMETHAMINE 15 MG/ML VIAL IV SCH (06:00)
[2022-09-03] MEDS: ACETAMINOPHEN 500 MG TAB PO SCH (06:01)
[2022-09-03 06:17] VITALS: BP 114/73; PULSE 66; O2SAT 94
--- NOTE | 2022-09-03 06:36 | Orthopedic Progress Note ---
Date of Service September 03, 2022 Assessment & Plan (1) Status post left knee replacement: Plan Assessment status post left total knee replacement doing well discharged home today. Anticoagulant dose per laboratory work this morning. Admission and Anticipated Discharge Date Admission Date: September 02, 2022 Orthopedic Progress Note She is sitting up in bed doing well denies chest pain shortness of breath fever chills nausea vomiting or headache. Vital signs are stable she is afebrile. Neurovascular check femoral sciatic nerve is normal. Wound dressing clean dry and intact. Calves nontender. Can do straight leg raise. A.m. labs are pending.
[2022-09-03 06:40] LABS: Hematocrit (blood only) 32.9 % (37.0-47.0); Mean Corpuscular Hemoglobin 28.1 pg (25.0-34.0); Mean Corpuscular Hgb Conc 33.4 g/dL (32.0-36.0); Mean Corpuscular Volume 83.9 fL (80.0-100.0); Mean Platelet Volume 10.8 fL (9.4-12.4); Platelet Count 120 K/uL (130-400); RDW Coefficient of Variation 13.6 % (11.5-14.5); RDW Standard Deviation 41.8 fL (36.4-46.3); Red Blood Count 3.92 M/uL (4.20-5.40); White Blood Count 7.53 K/ul (4.8-10.8)
[2022-09-03 07:07] LABS: INR 1.1 (0.9-1.1); Prothrombin Time 11.9 Seconds (9.0-12.0)
[2022-09-03] MEDS: DOCUSATE SODIUM 100 MG CAP PO SCH (07:28)
[2022-09-03] MEDS: ASCORBIC ACID 500 MG TAB PO SCH (07:28)
[2022-09-03] MEDS: FERROUS GLUCONATE 324 MG TAB PO SCH (07:28)
[2022-09-03] MEDS ORDERED: dexAMETHasone 10 MG in SYRINGE 0 ML IV SCH (08:00)
[2022-09-03 08:27] LABS: Calcium 8.4 mg/dl (8.6-10.3)
[2022-09-03 08:32] LABS: BUN Creatinine Ratio 30.7 (10-20); Est GFR (African American) 86.6 ml/min; Est GFR (Non-African American) 74.8 ml/min
[2022-09-03] MEDS ORDERED: TAMOXIFEN CITRATE 10 MG TABLET PO SCH (09:00)
[2022-09-03] MEDS ORDERED: WARFARIN SOD 5 MG TAB PO ONE (09:00)
[2022-09-03] MEDS ORDERED: MULTIVITAMIN TAB PO SCH (09:00)
[2022-09-03] MEDS ORDERED: FENOFIBRATE NANOCRYSTALLIZED 145 MG TABLET PO SCH (09:00)
--- NOTE | 2022-09-03 09:19 | Orthopedic Progress Note ---
Date of Service September 03, 2022 Assessment & Plan (1) Status post left knee replacement: Plan: The patient was educated regarding today's findings. Postsurgical dressings were changed by me. New dressings were applied along with the JOSLYN hose stocking. Written discharge instructions were provided. Patient will be discharged to home today with home health services Prescriptions for Percocet and Coumadin have been sent to the patient's pharmacy. Follow-up in the office on September 17 for staple removal as scheduled. Use the walker when ambulating. Use the knee immobilizer today and tomorrow when out of bed, and discontinue it altogether on Wednesday morning. Call the office with any other concerns Admission and Anticipated Discharge Date Admission Date: September 02, 2022 Subjective This 82-year-old female is seen today in her room. She is 1 day status post left total knee arthroplasty. Her and daughter are present. She has already finished her breakfast. She states she is feeling very good. And is waiting to be discharged home. She has already done her PT and OT this morning. She was able to eat her breakfast. He denies any numbness or tingling. No nausea or vomiting. She denies any chest pain, shortness of breath, abdominal pain. She is feeling some thigh discomfort from her tourniquet, otherwise she feels quite well. No other complaints at this time. Review of Systems Review of Systems: Unchanged from yesterday. Physical Exam Physical Exam: General: Well-developed, well-nourished, elderly female, in no acute distress. Laying in bed. Alert and oriented. Conversive. Skin: Warm and dry with good turgor. No rashes. Postsurgical dressings are in place. Upon removal, she has expected postoperative ecchymosis and edema. No active drainage from her surgical incision. Dacia are intact. Wound edges are well approximated. Musculoskeletal: Left knee evaluation reveals full terminal extension. Flexion to at least 60 degrees. She is able to set her quad and perform a straight leg raise. Intact motor function of the ankle. Neurologic: Gross sensation is intact across both lower extremities by soft touch. Peripheral pulses are 2+. Results & Data Vital Signs (Past 12 Hours) Vital Signs Temp Pulse Resp BP Pulse Ox O2 Del Method 09/03/22 06:17 36.4 C L 66 16 114/73 94 Room Air 09/03/22 03:00 36.4 C L 61 16 108/69 95 Room Air 09/02/22 23:00 36.5 C 64 16 125/75 95 Room Air Laboratory Results CBC obtained today shows a white count of 7.5. H&H of 11.0 and 32.9. Platelets 120,000. INR of 1.1. Sodium 138, potassium 4.0, chloride 108, CO2 22. BUN of 23. And creatinine normal at 0.75. Glucose is 120 this morning.
== END 2022-09-03 11:03 | disposition home health service (06) ==
LOC: 3E 06:20 → ASU 06:20

== ENCOUNTER 2024-03-15 16:05 | Inpatient (IN) ==
--- NOTE | 2024-03-15 16:11 | ED Triage Note ---
Date of Service March 15, 2024 Provider in Triage Author: Khadijah Gomez History of Present Illness This patient was briefly evaluated while in triage. An abbreviated physical exam was performed. This patient is a 84-year-old Female who presents to the ED for evaluation hx of HTN, dyslipidemia, having 9/10 headache x 2 days cold symptoms-congestion, cough, chest discomfort took a COVID test today and was negative Physical Exam GENERAL: NAD CARDIOVASCULAR: RRR RESPIRATORY: CTA NEURO: A&O x 4, speech clear, normal gait Initial orders for labs and / or imaging were placed and patient was placed in the waiting area until a bed is available. Please see further documentation for the full ED course.
[2024-03-15 16:56] LABS: Hemoglobin 13.2 g/dl (12.0-16.0); Mean Corpuscular Hemoglobin 27.7 pg (25.0-34.0); Mean Corpuscular Hgb Conc 34.7 g/dL (32.0-36.0); Mean Corpuscular Volume 79.8 fL (80.0-100.0); Mean Platelet Volume 9.9 fL (9.4-12.4); Platelet Count 191 K/uL (130-400); RDW Coefficient of Variation 12.9 % (11.5-14.5); RDW Standard Deviation 37.1 fL (36.4-46.3); Red Blood Count 4.76 M/uL (4.20-5.40); White Blood Count 5.12 K/ul (4.8-10.8)
[2024-03-15 17:13] LABS: Albumin Globulin Ratio 1.8 (0.9-2); Albumin Level 4.3 gm/dl (3.4-5.0); BUN Creatinine Ratio 21.8 (10-20); Bilirubin,Total 0.5 mg/dl (0.2-1.0); Calcium 8.8 mg/dl (8.6-10.3); Creatinine Clr Calc Pharmacy 51.3 ml/min; Globulin 2.4 gm/dl (2.5-4.0); Potassium 3.9 mmol/L (3.5-5.1); Total Protein 6.7 gm/dl (6.0-8.3)
[2024-03-15 17:25] LABS: Basophils # (auto) 0.04 K/uL (0.00-0.20); Basophils % (auto) 0.8 %; Eosinophils # (auto) 0.05 K/uL (0.00-0.50); Immature Granulocytes # (auto) 0.03 K/uL (0.01-0.20); Immature Granulocytes % (auto) 0.6 %; Lymphocytes # (auto) 1.67 K/uL (1.20-3.40); Lymphocytes % (auto) 32.6 %; Monocytes # (auto) 0.89 K/uL (0.11-0.59); Monocytes % (auto) 17.4 %; Neutrophils # (auto) 2.44 K/uL (1.40-6.50); Neutrophils % (auto) 47.6 %
[2024-03-15 17:44] LABS: Adenovirus PCR Not Detected (NotDetected); Bordetella parapertussis PCR Not Detected (NotDetected); Bordetella pertussis PCR Not Detected (NotDetected); Chlamydia pneumoniae PCR Not Detected (NotDetected); Coronavirus 229E PCR Not Detected (NotDetected); Coronavirus CoV-2 (COVID19)PCR Not Detected (NotDetected); Coronavirus HKU1 PCR Not Detected (NotDetected); Coronavirus NL63 PCR Not Detected (NotDetected); Coronavirus OC43PCR Not Detected (NotDetected); Human Metapneumovirus PCR Not Detected (NotDetected); Influenza A PCR Not Detected (NotDetected); Influenza B PCR Not Detected (NotDetected); Mycoplasma pneumoniae PCR Not Detected (NotDetected); Parainfluenza Virus 1 PCR Not Detected (NotDetected); Parainfluenza Virus 2 PCR Not Detected (NotDetected); Parainfluenza Virus 3 PCR Not Detected (NotDetected); Parainfluenza Virus 4 PCR DETECTED (NotDetected); Respiratory Syncytial VirusPCR Not Detected (NotDetected); Rhinovirus/Enterovirus PCR Not Detected (NotDetected)
[2024-03-15 17:50] LABS: Appearance Urine Cloudy (Clear); Bacteria Urine Automated 4+ (None Seen); Bilirubin Urine Negative (Negative); Blood Urine Negative (Negative); Color Urine Yellow; Epithelial Cell Urine Auto >20 /hpf (0-2); Glucose Urine UA Negative (Negative); Ketones Urine Negative (Negative); Leukocyte Esterase Urine Negative (Negative); Nitrite Urine Negative (Negative); Protein Urine Negative (Negative); RBC Urine Automated 0-2 /hpf (0-2); Specific Gravity Urine 1.014 (1.000-1.030); Urobilinogen Urine Negative (Negative); pH Urine 6.5 (4.5-7.5)
--- NOTE | 2024-03-15 18:04 | Emergency Department Note ---
Impression & Plan Acute hyponatremia, Parainfluenza infection ED Provider Note NAME: RICHAR SANTOS AGE: 84 SEX: F : 1940 ARRIVES VIA: Walk-In INFORMANT: Patient, ED PROVIDER(S): Caro Cameron MD CHIEF COMPLAINT: Cough, headache HPI: This is a 84-year-old female sent for headache, cough. Patient is for the past 2 days she has had a cough, sinus chest pain with cough. She has she does feel sick. She notes a new headache that is more severe than she is used to. She notes no nausea, vomiting, shortness of breath or diarrhea. She is notes no current sick contacts. recently travel to [place] to visit family. ROS: See above HPI for pertinent positives & negatives. A total of 10 systems reviewed and were otherwise negative. PAST MEDICAL HISTORY: See Below PAST SURGICAL HISTORY: See Below FAMILY HISTORY: See Below SOCIAL HISTORY: See Below HOME MEDICATIONS: See Below ALLERGIES: See Below VITALS: See Below PHYSICAL EXAMINATION: General: resting comfortably in no acute distress Head: Normocephalic and atraumatic Eyes: Normal inspection, extraocular muscles intact Ear, nose, throat: Normal external exam Neck: Normal range of motion Respiratory: lungs clear to auscultation bilaterally Cardiovascular: Regular rate/rhythm, no murmur GI: soft, nontender, no guarding or rebound Extremities: nontender, moves all extremities Neuro: The patient awake and alert, appropriately conversive, no focal deficits, symmetric faces Skin: Warm, dry, and intact MEDICAL DECISION MAKING: This is an 84-year-old female presenting for headache/cough. Workup was started in triage. -Blood work comes back with hyponatremia to 122, hypochloremia as well. - no leukocytosis or hemoglobin abnormality -Urinalysis reveals signs of contamination likely versus UTI -Currently awaiting chest x-ray, head CT -ECG independently interpreted by me with normal sinus rhythm, rate of 68, normal MO, normal QRS, normal QTc, no ST segment elevations consistent with STEMI criteria -Chest Xray independently interpreted by me showing no pneumothorax, focal opacity, or pleural effusions. -CT imaging reveals no intracranial process that is acute -Patient is found to be parainfluenza positive -Due to the significant hyponatremia, will admit for further workup and correction -Discussed care with Dr. Murray for admission Differential diagnosis: Intracranial hemorrhage, pneumonia, stroke, dehydration, URI, PE Independent History obtained from: Diagnostics interpreted by me: ECG: See above Cardiac Monitoring: An order was placed for continuous cardiac monitoring. The monitor shows a rate of 78 with sinus rhythm. 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) Urinary incontinence (Acute) Urge incontinence (Acute) Ovarian cancer (Acute 09/20/12) Nocturia (Acute) Cyst of kidney, acquired (Acute) H/O ovarian cancer Actinic keratosis Acute blood loss anemia Breast cancer LINTON (dyspnea on exertion) Foot mass Hernia, umbilical Hiatal hernia Medical History Sacroiliitis GERD (gastroesophageal reflux disease) Hx, no recent issues per patient Gastric ulcer Approximately 2018/2018 Chronic lower back pain Breast cancer, right 2018, s/p surgery, radiation and tamoxifen Macular degeneration Hx of ovarian cancer 2001, s/p chemo, MOLLY-BSO Osteoarthritis Hyperlipidemia Surgical History History of esophagogastroduodenoscopy (EGD) H/O bilateral cataract extraction S/P excision of fibroadenoma of breast Prior benign breast biopsies Status post right breast lumpectomy History of total abdominal hysterectomy and bilateral salpingo-oophorectomy History of tonsillectomy H/O blepharoplasty H/O dilation and curettage Hx of appendectomy Hx of colonoscopy History of anesthesia reaction "Slow to wake"/no known hx of reintubation Hx of total knee arthroplasty RIGHT Hx of foot surgery RIGHT FOOT History of back surgery Transpedicular spinal decompression Family History Sister Breast cancer Cancer Mother Cardiac disorder Father Cardiac disorder Family/Other Prostate cancer Breast cancer 2 nieces Lung cancer Brother Cancer Other No family history of adverse response to anesthesia Denies family history of Ovarian cancer Colorectal cancer Social History Smoking Status: Never smoker Second Hand Exposure: No; Do You Dip or Chew Tobacco: No; Hx Alcohol Use: Yes Alcohol type: wine and hard liquor Hx Substance Use: No Preferred Language: Kazakh Communication Ability: Effective Visual Impairment: No Limitations Hearing Ability: Normal Exterminator Required: No Beliefs That Will Affect Care: None marital status: Current Living Situation: Spouse current occupational status: retired 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 [employer] Safe at Home: Yes Diet: other caffeine: Yes (1 cup/day) during the past year weight has: remained stable Assistive Devices: Walker Allergies Allergies Allergy/AdvReac Type Severity Reaction Status Date / Time hydrocodone Allergy Intermediate Hives Verified 01/17/24 14:00 cephalexin AdvReac Mild Diarrhea Verified 01/17/24 14:00 Home Meds Home Medications Medication Instructions Recorded Confirmed fenofibrate 160 mg tablet 160 mg PO QAM 12/13/17 03/15/24 glucosamine-chondroitin 250 mg-200 1 tab PO BID 12/13/17 03/15/24 mg tablet (Osteo Bi-Flex) vit C 250 mg-vit E 90 mg-zinc 40 1 tab PO BID 12/13/17 03/15/24 mg-copper 1 [id number] capsule (PreserVision AREDS-2) cholecalciferol (vitamin D3) 25 25 mcg PO QAM 09/27/20 03/15/24 mcg (1,000 unit) capsule multivitamin 1 tab PO QAM 07/24/22 03/15/24 solifenacin 10 mg tablet 10 mg PO HS 07/24/22 03/15/24 losartan 100 mg tablet 100 mg PO DAILY 12/20/23 03/15/24 Previous Rx's Medication Instructions Recorded aspirin 81 mg tablet,delayed 81 mg PO DAILY #90 tabs 12/20/23 release (Enteric Coated Aspirin) memantine 5 mg tablet 5 mg PO BID #60 tabs 01/17/24 Results & Data (ED) Vital Signs Vital Signs - 24 hr 03/15/24 16:08 03/15/24 17:01 03/15/24 18:06 Temperature 36.5 C Temperature Source Temporal Artery Scan Pulse Rate 72 Pulse Rate [Left Brachial] 65 Pulse Rhythm Regular Pulse Rhythm [Left Brachial] Regular Pulse Strength Normal Pulse Strength [Left Brachial] Normal Respiratory Rate 18 20 Respiratory Effort / Characteristics Non-Labored Spontaneous Non-Labored Respiratory Depth Normal Normal Respiratory Pattern Regular Regular Blood Pressure 164/110 H Blood Pressure [Left Arm] 137/89 Blood Pressure Mean 128 Blood Pressure Mean [Left Arm] 105 Blood Pressure Position Sitting Blood Pressure Position [Left Arm] Sitting Pulse Oximetry 97 96 98 Oxygen Delivery Method Room Air Room Air Room Air Sepsis Recent Fever Within 48 Hours No Sepsis New/Unexplained Change in Mental Status No Sepsis Action Taken by Nursing No Action Required 03/15/24 20:00 Temperature Temperature Source Pulse Rate Pulse Rate [Left Brachial] 67 Pulse Rhythm Pulse Rhythm [Left Brachial] Regular Pulse Strength Pulse Strength [Left Brachial] Normal Respiratory Rate 22 Respiratory Effort / Characteristics Non-Labored Respiratory Depth Normal Respiratory Pattern Regular Blood Pressure Blood Pressure [Left Arm] 131/80 Blood Pressure Mean Blood Pressure Mean [Left Arm] 97 Blood Pressure Position Blood Pressure Position [Left Arm] Pulse Oximetry 98 Oxygen Delivery Method Room Air Sepsis Recent Fever Within 48 Hours Sepsis New/Unexplained Change in Mental Status Sepsis Action Taken by Nursing Laboratory Data 03/15/24 16:33 03/15/24 16:33 Lab Results 03/15/24 03/15/24 Range/Units 16:33 17:01 WBC 5.12 (4.8-10.8) K/ul RBC 4.76 (4.20-5.40) M/uL Hgb 13.2 (12.0-16.0) g/dl Hct 38.0 (37.0-47.0) % MCV 79.8 L (80.0-100.0) fL MCH 27.7 (25.0-34.0) pg MCHC 34.7 (32.0-36.0) g/dL RDW Std Deviation 37.1 (36.4-46.3) fL RDW Coeff of Sylvia 12.9 (11.5-14.5) % Plt Count 191 (130-400) K/uL MPV 9.9 (9.4-12.4) fL Immature Gran % (Auto) 0.6 % Neut % (Auto) 47.6 % Lymph % (Auto) 32.6 % [place] % (Auto) 17.4 % Eos % (Auto) 1.0 % Baso % (Auto) 0.8 % Neut # (Auto) 2.44 (1.40-6.50) K/uL Lymph # (Auto) 1.67 (1.20-3.40) K/uL [place] # (Auto) 0.89 H (0.11-0.59) K/uL Eos # (Auto) 0.05 (0.00-0.50) K/uL Baso # (Auto) 0.04 (0.00-0.20) K/uL Immature Gran # (Auto) 0.03 (0.01-0.20) K/uL Sodium 122 L (136-145) mmol/L Potassium 3.9 (3.5-5.1) mmol/L Chloride 89 L (98-107) mmol/L Carbon Dioxide 24 (21-32) mmol/L Anion Gap 9 (3-11) BUN 17 (6-23) mg/dl Creatinine 0.78 (0.6-1.2) mg/dl Est Cr Clr Drug Dosing 51.3 ml/min eGFR 75.32 BUN/Creatinine Ratio 21.8 H (10-20) Glucose 128 H (70-99(Fasting)) mg/dl Osmolality 257 L (280-300) mOsm/kg Calcium 8.8 (8.6-10.3) mg/dl Total Bilirubin 0.5 (0.2-1.0) mg/dl AST 26 (13-39) U/L ALT 18 (7-52) U/L Alkaline Phosphatase 59 (34-104) U/L Troponin I High Sens 3.0 (0-14) pg/ml Total Protein 6.7 (6.0-8.3) gm/dl Albumin 4.3 (3.4-5.0) gm/dl Globulin 2.4 L (2.5-4.0) gm/dl Albumin/Globulin Ratio 1.8 (0.9-2) Urine Color Yellow Urine Appearance Cloudy A (Clear) Urine pH 6.5 (4.5-7.5) Ur Specific [place] 1.014 (1.000-1.030) Urine Protein Negative (Negative) Urine Glucose (UA) Negative (Negative) Urine Ketones Negative (Negative) Urine Blood Negative (Negative) Urine Nitrite Negative (Negative) Urine Bilirubin Negative (Negative) Urine Urobilinogen Negative (Negative) Ur Leukocyte Esterase Negative (Negative) Urine WBC (Auto) 11-20 H (0-5) /hpf Urine RBC (Auto) 0-2 (0-2) /hpf U Hyaline Cast (Auto) 3-5 H (0-2) /lpf U Epithel Cells (Auto) >20 H (0-2) /hpf Urine Bacteria (Auto) 4+ H (None Seen) Adenovirus (PCR) Not Detected (NotDetected) B. pertussis DNA (PCR) Not Detected (NotDetected) B.parapertussis DNA PCR Not Detected (NotDetected) C. pneumoniae DNA (PCR) Not Detected (NotDetected) Coronavirus OC43 (PCR) Not Detected (NotDetected) Coronavirus HKU1 (PCR) Not Detected (NotDetected) Coronavirus 229E (PCR) Not Detected (NotDetected) SARS-CoV-2 (PCR) Not Detected (NotDetected) Coronavirus NL63 (PCR) Not Detected (NotDetected) Human Metapneumovir PCR Not Detected (NotDetected) Influenza Type A (PCR) Not Detected (NotDetected) Influenza Type B (PCR) Not Detected (NotDetected) M. pneumoniae (PCR) Not Detected (NotDetected) Parainfluenza 1 (PCR) Not Detected (NotDetected) Parainfluenza 2 (PCR) Not Detected (NotDetected) Parainfluenza 3 (PCR) Not Detected (NotDetected) Parainfluenza 4 (PCR) DETECTED A (NotDetected) RSV (PCR) Not Detected (NotDetected) Entero/Rhino (PCR) Not Detected (NotDetected) Administered Medications Guaifenesin (Guaifenesin Sugar Free 100 Mg/5 Ml Udc) 100 mg PO Q6H PRN PRN Reason: Cough Stop: 04/14/24 23:27 Last Admin: 03/16/24 00:18 Dose: 100 mg Documented By: RITA Sodium Chloride (Nss) 500 mls @ 80 mls/hr IV .[id number] ERASMO Stop: 03/16/24 05:42 Last Admin: 03/16/24 00:18 Dose: 80 mls/hr Documented By: RITA Melatonin (Melatonin 3 Mg Tab) 3 mg PO HS PRN PRN Reason: Sleep Stop: 04/15/24 00:12 Last Admin: 03/16/24 00:34 Dose: 3 mg Documented By: RITA Memantine (Memantine Hcl 5 Mg Tab) 5 mg PO BID ERASMO Stop: 04/14/24 23:27 Last Admin: 03/16/24 00:34 Dose: 5 mg Documented By: RITA Discontinued Medications Ketorolac Tromethamine (Ketorolac Tromethamine 15 Mg/Ml Vial) 15 mg IV NOW ONE Stop: 03/15/24 18:01 Last Admin: 03/15/24 18:31 Dose: 15 mg Documented By: ALEE Imaging Data Radiologist's Impression: Chest X-Ray 03/15/24 16:11 EXAM: Radiograph of the Chest 1 View INDICATION: Cough and headache. TECHNIQUE: Frontal view of the chest. COMPARISON: None 2023 FINDINGS: Lungs and pleural spaces: No consolidation or pulmonary edema. No pleural effusion or pneumothorax. Heart: Shape and configuration within normal limits allowing for technique. Mediastinum: Normal contour. Bones/joints: No fracture, erosion or dislocation. Soft tissues: No abnormality noted. No radiopaque foreign body noted. Upper abdomen: No abnormality noted. IMPRESSION: No abnormality noted. ACT 112: Negative or not required by law. Electronically signed by Sushila Montelongo 03-15-2024 6:[address] 03/15/24 16:12 EXAM: CT Head Without Intravenous Contrast INDICATION: Headache. TECHNIQUE: Axial computed tomography images of the head/brain without intravenous contrast. Sagittal and/or coronal reformats are provided. Sagittal and coronal reformatted images were created and reviewed. This CT exam was performed using one or more of the following dose reduction techniques: automated exposure control, adjustment of the mA and/or kV according to patient size, and/or use of iterative reconstruction technique. COMPARISON: 12/03/2023 FINDINGS: Limitations: None. Brain and extra-axial spaces: There is age appropriate cortical atrophy and chronic ischemic periventricular white matter hypodensity. No acute infarct, hemorrhage or mass noted. Bones/joints: No acute changes. Soft tissues: No significant abnormality noted. Vasculature: No acute abnormality noted. Sinuses: No layering fluid in the visualized portions of the paranasal sinuses. Mastoid air cells: No mastoid effusion. Orbits: No significant abnormality noted. IMPRESSION: Cerebral atrophy. No acute changes. ACT 112: Negative or not required by law. Electronically signed by Sushila Montelongo 03-15-2024 6:16 PM Discharge Plan Visit Data Chief Complaint: Headache Stated Complaint: HEADACHES, COLD, ED Provider: Caro Cameron Discharge Problem: Acute hyponatremia, Parainfluenza infection Patient Disposition: Admitted As Inpatient Discharge Instructions Interventions: ED Discharge Assessment Last Done: 03/15/24 23:18
--- NOTE | 2024-03-15 18:17 | CT Scan Report ---
EXAM: CT Head Without Intravenous Contrast INDICATION: Headache. TECHNIQUE: Axial computed tomography images of the head/brain without intravenous contrast. Sagittal and/or coronal reformats are provided. Sagittal and coronal reformatted images were created and reviewed. This CT exam was performed using one or more of the following dose reduction techniques: automated exposure control, adjustment of the mA and/or kV according to patient size, and/or use of iterative reconstruction technique. COMPARISON: 12/03/2023 FINDINGS: Limitations: None. Brain and extra-axial spaces: There is age appropriate cortical atrophy and chronic ischemic periventricular white matter hypodensity. No acute infarct, hemorrhage or mass noted. Bones/joints: No acute changes. Soft tissues: No significant abnormality noted. Vasculature: No acute abnormality noted. Sinuses: No layering fluid in the visualized portions of the paranasal sinuses. Mastoid air cells: No mastoid effusion. Orbits: No significant abnormality noted. IMPRESSION: Cerebral atrophy. No acute changes. ACT 112: Negative or not required by law. Electronically signed by Sushila Montelongo 03-15-2024 6:16 PM
[2024-03-15] MEDS: KETOROLAC TROMETHAMINE 15 MG/ML VIAL IV ONE (18:31)
--- NOTE | 2024-03-15 18:35 | XRay Report ---
EXAM: Radiograph of the Chest 1 View INDICATION: Cough and headache. TECHNIQUE: Frontal view of the chest. COMPARISON: None 2023 FINDINGS: Lungs and pleural spaces: No consolidation or pulmonary edema. No pleural effusion or pneumothorax. Heart: Shape and configuration within normal limits allowing for technique. Mediastinum: Normal contour. Bones/joints: No fracture, erosion or dislocation. Soft tissues: No abnormality noted. No radiopaque foreign body noted. Upper abdomen: No abnormality noted. IMPRESSION: No abnormality noted. ACT 112: Negative or not required by law. Electronically signed by Sushila Montelongo 03-15-2024 6:34 PM
--- NOTE | 2024-03-15 22:28 | History & Physical Report ---
Date of Service March 15, 2024 Assessment & Plan (1) Hyponatremia: Plan: 84 yo female presenting with 3 days of URI symptoms found to be POSITIVE for Parainfluenza virus. Found with Me=203. Last sodium check on 12/14/23 normal at 137. Patient is asymptomatic. Recently started on HCTZ for blood pressure management which is likely cause of her hyponatremia -Admit to medical -Check urine and serum osmolality -Check urine Na -NSS x 500mL -Hold HCTZ -Repeat chemistry in AM (2) Parainfluenza: Plan: Patient is no septic, no respiratory distress or hypoxia. No leukocytosis. She does have some right basilar crackles on exam. Denies fever/chills, no leukocytosis -Symptomatic treatment with Tylenol, Robitussin, Zofran PRN -Monitor for developing bacterial PNA (3) Hypertension: Plan: Blood pressure acceptable. Recently started on HCTZ for BP management likely leading to her presenting hyponatremia -Continue Losartan 100mg po daily -Hold HCTZ -Monitor BP (4) Dyslipidemia: Plan: Chronic -Continue Fenofibrate Plan F/E/N - NSS x 500mL, Na monitoring with repeat chemistry in AM, Regular diet as tolerated Ppx - low risk for DVT Code - Full Dispo -Admit to medical History of Present Illness Chief Complaint: headache Primary Care Provider: Armen Lockett MD Jesenia Canada is a pleasant 84yo female with history of GERD, HLP presenting from home with headache, cough and congestion. Patient reports 3 days of dry cough, congestion and severe headache. She has some pain in her chest associated with coughing but otherwise denies chest pain. She reports that she is eating and drinking well. She denies fever, chills, palpitations, abdominal pain, nausea, vomiting, diarrhea. No imbalance, confusion or seizure. No urinary complaints. She is following with Neurology for recent word finding difficulty. Patient presents today with ongoing cough and chest discomfort, concern for PNA. In the ER she is afebrile, HD stable, NAD. Adequate oxygenation on room air with no respiratory distress. She was found to be hyponatremic with Hs=051. No history of prior hyponatremia. Her Amlodipine was recently discontinued due to LE edema and she was started on HCTZ for management of blood pressure (5 days ago). ER Course: Toradol 15mg IV Allergies Allergy/AdvReac Type Severity Reaction Status Date / Time hydrocodone Allergy Intermediate Hives Verified 01/17/24 14:00 cephalexin AdvReac Mild Diarrhea Verified 01/17/24 14:00 Home Medications Medication Instructions Recorded Confirmed Type fenofibrate 160 mg tablet 160 mg PO QAM 12/13/17 03/15/24 History glucosamine-chondroitin 250 mg-200 1 tab PO BID 12/13/17 03/15/24 History mg tablet (Osteo Bi-Flex) vit C 250 mg-vit E 90 mg-zinc 40 1 tab PO BID 12/13/17 03/15/24 History mg-copper 1 [id number] capsule (PreserVision AREDS-2) cholecalciferol (vitamin D3) 25 25 mcg PO QAM 09/27/20 03/15/24 History mcg (1,000 unit) capsule multivitamin 1 tab PO QAM 07/24/22 03/15/24 History solifenacin 10 mg tablet 10 mg PO HS 07/24/22 03/15/24 History aspirin 81 mg tablet,delayed 81 mg PO DAILY #90 tabs 12/20/23 03/15/24 Rx release (Enteric Coated Aspirin) losartan 100 mg tablet 100 mg PO DAILY 12/20/23 03/15/24 History memantine 5 mg tablet 5 mg PO BID #60 tabs 01/17/24 03/15/24 Rx Past Med/Surg History Problem List (Updated 03/15/24 @ 22:20 by Bertha Murray DO) Parainfluenza Hyponatremia Mild cognitive impairment Ischemic changes on head CT Hypertension Memory impairment Word finding difficulty Balance disorder Status post left knee replacement Closed head injury (Acute) Fall (Acute) Right knee DJD Right radial head fracture (Acute) Scalp hematoma (Acute) Encounter for pre-operative examination Dyslipidemia Intraductal carcinoma of right breast (Chronic 11/25/17) Urinary incontinence (Acute) Urge incontinence (Acute) Ovarian cancer (Acute 09/20/12) Nocturia (Acute) Cyst of kidney, acquired (Acute) H/O ovarian cancer Actinic keratosis Acute blood loss anemia Breast cancer LINTON (dyspnea on exertion) Foot mass Hernia, umbilical Hiatal hernia Medical History Sacroiliitis GERD (gastroesophageal reflux disease) Hx, no recent issues per patient Gastric ulcer Approximately Chronic lower back pain Breast cancer, right 2018, s/p surgery, radiation and tamoxifen Macular degeneration Hx of ovarian cancer 2001, s/p chemo, MOLLY-BSO Osteoarthritis Hyperlipidemia Surgical History History of esophagogastroduodenoscopy (EGD) H/O bilateral cataract extraction S/P excision of fibroadenoma of breast Prior benign breast biopsies Status post right breast lumpectomy History of total abdominal hysterectomy and bilateral salpingo-oophorectomy History of tonsillectomy H/O blepharoplasty H/O dilation and curettage Hx of appendectomy Hx of colonoscopy History of anesthesia reaction "Slow to wake"/no known hx of reintubation Hx of total knee arthroplasty RIGHT Hx of foot surgery RIGHT FOOT History of back surgery Transpedicular spinal decompression Family History Sister Breast cancer Cancer Mother Cardiac disorder Father Cardiac disorder Family/Other Prostate cancer Breast cancer 2 nieces Lung cancer Brother Cancer Other No family history of adverse response to anesthesia Denies family history of Ovarian cancer Colorectal cancer Social History Smoking Status: Never smoker Second Hand Exposure: No; Do You Dip or Chew Tobacco: No; Hx Alcohol Use: Yes Alcohol type: wine and hard liquor Hx Substance Use: No Preferred Language: Yemeni Communication Ability: Effective Visual Impairment: No Limitations Hearing Ability: Normal Knitting Teacher Required: No Beliefs That Will Affect Care: None marital status: Current Living Situation: Spouse current occupational status: retired 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 [employer] Safe at Home: Yes Diet: other caffeine: Yes (1 cup/day) during the past year weight has: remained stable Assistive Devices: Walker Review of Systems Review of Systems: All systems reviewed & are unremarkable except as noted in HPI & below Physical Exam Physical Exam: General: patient resting comfortably, NAD, non-toxic in appearance, AA&O x 4 Skin: warm, dry, intact, no rashes or lesions HEENT: NC/AT, PERRL, EOMI, anicteric sclera, conjunctiva without injection, external ear normal to inspection and nontender, nares patent, moist mucus membranes, dentition intact, no oropharyngeal lesions, neck supple, trachea midline, no LAD, no thyromegaly, no JVD Heart: +S1/S2, regular, 3/6 SUSIE at right 2nd ICS, Lungs: equal air entry bilaterally, +crackles present in right base, no rhonchi or wheezes Abd: +BS, soft, NT/ND, no masses/organomegaly/ascites Ext: warm, 2+ pulses in UE/LE bilaterally, no clubbing/cyanosis or edema Neuro: nonfocal, patient AA&O x 4, speech intact, no facial droop, moving all extremities on command with equal strength 5/5 Results & Data Results & Data Vital Signs (Past 12 Hours) Vital Signs Temp Pulse Pulse Resp BP BP Pulse Ox 03/15/24 22:00 69 20 116/79 94 03/15/24 20:00 67 22 131/80 98 03/15/24 18:06 65 20 137/89 98 03/15/24 17:01 96 03/15/24 16:08 36.5 C 72 18 164/110 H 97 O2 Del Method 03/15/24 22:00 Room Air 03/15/24 20:00 Room Air 03/15/24 18:06 Room Air 03/15/24 17:01 Room Air 03/15/24 16:08 Room Air Laboratory Results Laboratory Results WBC 5.12 K/ul (4.8-10.8) 03/15/24 16:33 RBC 4.76 M/uL (4.20-5.40) 03/15/24 16:33 Hgb 13.2 g/dl (12.0-16.0) 03/15/24 16:33 Hct 38.0 % (37.0-47.0) 03/15/24 16:33 MCV 79.8 fL (80.0-100.0) L 03/15/24 16:33 MCH 27.7 pg (25.0-34.0) 03/15/24 16:33 MCHC 34.7 g/dL (32.0-36.0) 03/15/24 16:33 RDW Std Deviation 37.1 fL (36.4-46.3) 03/15/24 16:33 RDW Coeff of Sylvia 12.9 % (11.5-14.5) 03/15/24 16:33 Plt Count 191 K/uL (130-400) 03/15/24 16:33 MPV 9.9 fL (9.4-12.4) 03/15/24 16:33 Immature Gran % (Auto) 0.6 % 03/15/24 16:33 Neut % (Auto) 47.6 % 03/15/24 16:33 Lymph % (Auto) 32.6 % 03/15/24 16:33 Cotton % (Auto) 17.4 % 03/15/24 16:33 Eos % (Auto) 1.0 % 03/15/24 16:33 Baso % (Auto) 0.8 % 03/15/24 16:33 Neut # (Auto) 2.44 K/uL (1.40-6.50) 03/15/24 16:33 Lymph # (Auto) 1.67 K/uL (1.20-3.40) 03/15/24 16:33 Cotton # (Auto) 0.89 K/uL (0.11-0.59) H 03/15/24 16:33 Eos # (Auto) 0.05 K/uL (0.00-0.50) 03/15/24 16:33 Baso # (Auto) 0.04 K/uL (0.00-0.20) 03/15/24 16:33 Immature Gran # (Auto) 0.03 K/uL (0.01-0.20) 03/15/24 16:33 Sodium 122 mmol/L (136-145) L 03/15/24 16:33 Potassium 3.9 mmol/L (3.5-5.1) 03/15/24 16:33 Chloride 89 mmol/L (98-107) L 03/15/24 16:33 Carbon Dioxide 24 mmol/L (21-32) 03/15/24 16:33 Anion Gap 9 (3-11) 03/15/24 16:33 BUN 17 mg/dl (6-23) 03/15/24 16:33 Creatinine 0.78 mg/dl (0.6-1.2) 03/15/24 16:33 Est Cr Clr Drug Dosing 51.3 ml/min 03/15/24 16:33 eGFR 75.32 03/15/24 16:33 BUN/Creatinine Ratio 21.8 (10-20) H 03/15/24 16:33 Glucose 128 mg/dl (70-99(Fasting)) H 03/15/24 16:33 Calcium 8.8 mg/dl (8.6-10.3) 03/15/24 16:33 Total Bilirubin 0.5 mg/dl (0.2-1.0) 03/15/24 16:33 AST 26 U/L (13-39) 03/15/24 16:33 ALT 18 U/L (7-52) 03/15/24 16:33 Alkaline Phosphatase 59 U/L (34-104) 03/15/24 16:33 Troponin I High Sens 3.0 pg/ml (0-14) 03/15/24 16:33 Total Protein 6.7 gm/dl (6.0-8.3) 03/15/24 16:33 Albumin 4.3 gm/dl (3.4-5.0) 03/15/24 16:33 Globulin 2.4 gm/dl (2.5-4.0) L 03/15/24 16:33 Albumin/Globulin Ratio 1.8 (0.9-2) 03/15/24 16:33 Urine Color Yellow 03/15/24 17:01 Urine Appearance Cloudy (Clear) A 03/15/24 17:01 Urine pH 6.5 (4.5-7.5) 03/15/24 17:01 Ur Specific [place] 1.014 (1.000-1.030) 03/15/24 17:01 Urine Protein Negative (Negative) 03/15/24 17:01 Urine Glucose (UA) Negative (Negative) 03/15/24 17:01 Urine Ketones Negative (Negative) 03/15/24 17:01 Urine Blood Negative (Negative) 03/15/24 17:01 Urine Nitrite Negative (Negative) 03/15/24 17:01 Urine Bilirubin Negative (Negative) 03/15/24 17:01 Urine Urobilinogen Negative (Negative) 03/15/24 17:01 Ur Leukocyte Esterase Negative (Negative) 03/15/24 17:01 Urine WBC (Auto) 11-20 /hpf (0-5) H 03/15/24 17:01 Urine RBC (Auto) 0-2 /hpf (0-2) 03/15/24 17:01 U Hyaline Cast (Auto) 3-5 /lpf (0-2) H 03/15/24 17:01 U Epithel Cells (Auto) >20 /hpf (0-2) H 03/15/24 17:01 Urine Bacteria (Auto) 4+ (None Seen) H 03/15/24 17:01 Adenovirus (PCR) Not Detected (NotDetected) 03/15/24 16:33 B. pertussis DNA (PCR) Not Detected (NotDetected) 03/15/24 16:33 B.parapertussis DNA PCR Not Detected (NotDetected) 03/15/24 16:33 C. pneumoniae DNA (PCR) Not Detected (NotDetected) 03/15/24 16:33 Coronavirus OC43 (PCR) Not Detected (NotDetected) 03/15/24 16:33 Coronavirus HKU1 (PCR) Not Detected (NotDetected) 03/15/24 16:33 Coronavirus 229E (PCR) Not Detected (NotDetected) 03/15/24 16:33 SARS-CoV-2 (PCR) Not Detected (NotDetected) 03/15/24 16:33 Coronavirus NL63 (PCR) Not Detected (NotDetected) 03/15/24 16:33 Human Metapneumovir PCR Not Detected (NotDetected) 03/15/24 16:33 Influenza Type A (PCR) Not Detected (NotDetected) 03/15/24 16:33 Influenza Type B (PCR) Not Detected (NotDetected) 03/15/24 16:33 M. pneumoniae (PCR) Not Detected (NotDetected) 03/15/24 16:33 Parainfluenza 1 (PCR) Not Detected (NotDetected) 03/15/24 16:33 Parainfluenza 2 (PCR) Not Detected (NotDetected) 03/15/24 16:33 Parainfluenza 3 (PCR) Not Detected (NotDetected) 03/15/24 16:33 Parainfluenza 4 (PCR) DETECTED (NotDetected) A 03/15/24 16:33 RSV (PCR) Not Detected (NotDetected) 03/15/24 16:33 Entero/Rhino (PCR) Not Detected (NotDetected) 03/15/24 16:33 Impressions Chest X-Ray 03/15/24 16:11 EXAM: Radiograph of the Chest 1 View INDICATION: Cough and headache. TECHNIQUE: Frontal view of the chest. COMPARISON: None 2023 FINDINGS: Lungs and pleural spaces: No consolidation or pulmonary edema. No pleural effusion or pneumothorax. Heart: Shape and configuration within normal limits allowing for technique. Mediastinum: Normal contour. Bones/joints: No fracture, erosion or dislocation. Soft tissues: No abnormality noted. No radiopaque foreign body noted. Upper abdomen: No abnormality noted. IMPRESSION: No abnormality noted. ACT 112: Negative or not required by law. Electronically signed by Sushila Montelongo 03-15-2024 6:[address] 03/15/24 16:12 EXAM: CT Head Without Intravenous Contrast INDICATION: Headache. TECHNIQUE: Axial computed tomography images of the head/brain without intravenous contrast. Sagittal and/or coronal reformats are provided. Sagittal and coronal reformatted images were created and reviewed. This CT exam was performed using one or more of the following dose reduction techniques: automated exposure control, adjustment of the mA and/or kV according to patient size, and/or use of iterative reconstruction technique. COMPARISON: 12/03/2023 FINDINGS: Limitations: None. Brain and extra-axial spaces: There is age appropriate cortical atrophy and chronic ischemic periventricular white matter hypodensity. No acute infarct, hemorrhage or mass noted. Bones/joints: No acute changes. Soft tissues: No significant abnormality noted. Vasculature: No acute abnormality noted. Sinuses: No layering fluid in the visualized portions of the paranasal sinuses. Mastoid air cells: No mastoid effusion. Orbits: No significant abnormality noted. IMPRESSION: Cerebral atrophy. No acute changes. ACT 112: Negative or not required by law. Electronically signed by Sushila Montelongo 03-15-2024 6:16 PM PG Care Time/CCT Total # of Minutes Spent Total Time Spent with Patient: Total time spent is greater than 50% in coordination of care (as documented) at patient's floor/unit and/or counseling patient: Coding Level of Care Code 11454 INT INP/OBS CARE 2/55MIN Diagnoses Hyponatremia E87.1 Parainfluenza B34.8 Hypertension I10 Dyslipidemia E78.5
[2024-03-15] MEDS ORDERED: ACETAMINOPHEN 325 MG TAB PO PRN (23:28)
[2024-03-15] MEDS ORDERED: ONDANSETRON INJ 2 MG/ML 2 ML VIAL IV PRN (23:28)
[2024-03-16] MEDS: SODIUM CHLORIDE 0.9% 500 ML IV SCH (00:18)
[2024-03-16] MEDS: guaiFENesin SUGAR FREE 100 MG/5 ML UDC PO PRN (00:18)
[2024-03-16] MEDS: MELATONIN 3 MG TAB PO PRN (00:34)
[2024-03-16] MEDS: MEMANTINE HCL 5 MG TAB PO SCH (00:34)
[2024-03-16] MEDS: COUGH DROP (SUGAR FREE) LOZ 24 LOZ/1 BOX BUCCAL PRN (06:05)
[2024-03-16 07:36] LABS: BUN Creatinine Ratio 23.2 (10-20); Calcium 8.5 mg/dl (8.6-10.3); Creatinine Clr Calc Pharmacy 57.7 ml/min; Potassium 3.6 mmol/L (3.5-5.1)
[2024-03-16] MEDS: LOSARTAN POTASSIUM 50 MG TAB PO SCH (08:09)
[2024-03-16] MEDS: ASPIRIN 81 MG ECTAB PO SCH (08:10)
--- NOTE | 2024-03-16 16:28 | Hospitalist Progress Note ---
Date of Service March 16, 2024 Assessment & Plan (1) Hyponatremia: Plan: admission Na level 122, improving to 127, then back down to 123 this afternoon serum osm <250 urine Na 50 yesterday and today 70 urine osm is > serum osm on exam appears euvolemic BUN & Cr wnl TSH wnl in 11/2023 recent HCTZ use could have contributed to hyponatremia acute illness could have triggered SIADH can't exclude underlying malignancy induced SIADH (has prior h/o breast & ovar moe cancer) plan - * fluid restrict to 1200ml/day * NaCL tab 2gm x 1 now then daily * serial Na levels ~q6h * consider 3% saline if poor response to salt tablet administration * repeat urine osm in am tomorrow consider repeat TSH level (2) Parainfluenza: Plan: with resulting severe bronchitis start dexamethasone 6mg IV daily start scheduled duonebs q6h incentive alex flutter valve mucinex 1200mg BID consider CTA chest in light of recent air travel, prior cancer history, etc - r/o complicating PE, r/o complicating bacterial superinfection (3) Hypertension: Plan: Blood pressure acceptable on losartan only HCTZ has been stopped simply follow BPs (4) Dyslipidemia: Plan: Continue Fenofibrate Plan will obtain PT/OT evals DVT proph - add heparin or similar tomorrow updated at bedside Admission and Anticipated Discharge Date Admission Date: March 15, 2024 Subjective patient reports ongoing cough, chest congestion, chest tightness, wheezing, and simply feeling poorly she & her were just in [place] - traveled by plane to get to [place] recently placed on HCTZ for BP control and to help with chronic LE edema (especially right leg) previously was on amlodipine but it was felt to have contributed to her edema despite her low sodium she does not feel foggy or altered does not feel lethargic Review of Systems Review of Systems: CV - no pleuritic chest pain pulm - cough/congestion GI - no diarrhea but did vomit at lunch-time today Physical Exam Physical Exam: gen - severe bronchial cough present; no distress; awake/alert neck - no JVD HENT - hoarse voice, MMM heart - RRR, s1 s2, no murmur lungs - extensive wheezing b/l, poor airation, bronchial cough, no distress, scattered rales abd - soft NT ND BS+ skin - normal turgor, no rash ext - no edema, pulses 2+ b/l feet psych - a/o x 3 Results & Data Results & Data Vital Signs (Past 12 Hours) Vital Signs Temp Pulse Resp BP Pulse Ox O2 Del Method 03/16/24 16:20 36.8 C 76 16 116/74 94 Room Air 03/16/24 10:21 Room Air 03/16/24 07:39 36.7 C 70 18 148/88 H 94 Room Air Laboratory Results Laboratory Results - last 24 hr 03/16/24 03/16/24 06:48 12:36 Sodium 127 L 123 L Potassium 3.6 Chloride 94 L Carbon Dioxide 26 Anion Gap 7 BUN 16 Creatinine 0.69 Est Cr Clr Drug Dosing 57.7 eGFR 86.06 BUN/Creatinine Ratio 23.2 H Glucose 103 H Calcium 8.5 L 03/16/24 Unknown Urine Osmolality 448 L Ur Random Sodium 70 PG Care Time/CCT Total # of Minutes Spent Total Time Spent with Patient: Total time spent is greater than 50% in coordination of care (as documented) at patient's floor/unit and/or counseling patient: Coding Level of Care Code 98184 SUB INP/OBS CARE 3/50MIN Diagnoses Hyponatremia E87.1 Parainfluenza B34.8 Hypertension I10 Dyslipidemia E78.5
[2024-03-16] MEDS: ALBUT/IPRATROP 3MG/0.5MG NEB 3 ML VIAL NEB SCH (16:39)
[2024-03-16] MEDS: dexAMETHasone 6 MG in SYRINGE 0 ML IV SCH (17:08)
[2024-03-16] MEDS: SODIUM CHLORIDE 1 GM TABLET PO SCH (17:53)
[2024-03-16] MEDS: guaiFENesin 600 MG TABCR PO SCH (20:53)
[2024-03-17 06:59] LABS: BUN Creatinine Ratio 22.6 (10-20); Calcium 8.7 mg/dl (8.6-10.3); Creatinine Clr Calc Pharmacy 64.2 ml/min; Potassium 4.1 mmol/L (3.5-5.1)
[2024-03-17] MEDS: OPTIRAY 320 125ml IV ONE (12:19)
--- NOTE | 2024-03-17 13:07 | CT Scan Report ---
CT angio chest PE protocol CT DOSE: 581.57 mGy.cm HISTORY: 84 years-old Female with parainfluenza bronchitis, h/o breast/ovarian ca.. Acute shortness of breath TECHNIQUE: Multiple CTA images of the chest were obtained after the intravenous administration of 112 ml Optiray. Coronal and sagittal MIPS were obtained from the axial data set and were submitted for review. All measurements were obtained according to NASCET criteria. A dose lowering technique was u tilized adhering to the principles of ALARA. COMPARISON: Chest radiograph 03/15/2024, chest CT 05/14/2020 FINDINGS: CTA: Mild cardiomegaly. No pericardial effusion. Ectasia of the ascending thoracic aorta, 3.9 cm. The desc ending thoracic aortic tortuosity. No pulmonary emboli. CT CHEST: Chronic left hemidiaphragmatic elevation. Unremarkable thyroid. There are a few borderline enlarged b ilateral hilar and subcarinal lymph nodes. Trace pleural effusions. 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 No pneumothorax. Mild intralobular septal thickening with dependent bibasilar groundglass densities. Bronchial wall thickening with bibasilar mucous plugg ing. Chronic collapse of the right middle lobe. Mid esophageal wall thickening. The mid esophagus is distended and debris-filled. There is caliber ch stan/narrowing involving the distal third of the esophagus on image 52 series 4. No discrete obstruct ing mass or lesion identified. The stomach is also debris filled. Degenerative changes of the spine a nd shoulders. No acute fracture is seen. IMPRESSION: 1. Cardiomegaly with suggestion of mild interstitial pulmonary edema and trace pleural effusions. 2. No pulmonary emboli. 3. Mild bibasilar mucous plugging with groundglass densities suggestive of atelectasis. 4. The stomach and mid esophagus are mildly distended and debris-filled which may represent reflux ve rsus delayed esophageal emptying. Findings could be correlate with endoscopy if there is concern for distal esophageal stricturing. 5. Nonspecific borderline-enlarged mediastinal and hilar lymph nodes. 6. 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 ACT 112: Negative or not required by law. The above report was generated using voice recognition software. It may contain grammatical, syntax o r spelling errors. Electronically signed by: Isael Whitmore M.D. 03/17/2024 1:05 PM
[2024-03-17] MEDS: PANTOprazole 40 MG TAB PO SCH (14:22)
[2024-03-17 19:50] VITALS: TEMP 97.7
--- NOTE | 2024-03-17 20:13 | Hospitalist Progress Note ---
Date of Service March 17, 2024 Assessment & Plan (1) Hyponatremia: Plan: admission Na level 122, improved to 127, then back down to 122/123 this AM 127 repeat this afternoon 133 improvement is s/p NaCL supplementation 2gm yesterday and 2gm today along with fluid restriction serum osm <250 on exam appears euvolemic BUN & Cr wnl TSH wnl in 11/2023 recent HCTZ use could have contributed to hyponatremia acute illness could have triggered SIADH repeat urine osm is finally low suggesting we are getting ahead of any SIADH issue plan - * cont fluid restrict to 1200ml/day * cont NaCL tab but lower to 1gm daily * repeat BMP in am (2) Parainfluenza: Plan: with resulting severe bronchitis IMPROVED cont dexamethasone 6mg IV daily cont scheduled duonebs q6h cont incentive alex, flutter valve, mucinex 1200mg BID CTA chest today without complicating PEs or evidence of bacterial pneumonia groundglass opacities likely are due to the virus itself defer on abx at this time at d/c would send with steroid taper, inhaler, etc. (3) Hypertension: Plan: Blood pressure acceptable on losartan only HCTZ has been stopped cont to simply follow BPs (4) Dyslipidemia: Plan: Continue Fenofibrate (5) Abnormal chest CT: Plan: esophageal abnormalities noted harmatoma 10mm RLL noted start PPI will send to GI post-d/c for consideration of EGD consider pulm referral as well of note - patient does NOT examine in CHF BNP is very low I do not think the CT findings are indicative of CHF; suspect CT findings are viral in origin Plan updated at bedside yesterday left message for on his voicemail this evening hopefully home tomorrow Admission and Anticipated Discharge Date Admission Date: March 15, 2024 Subjective patient overall feeling better cough remains but is improved can take deeper breaths & the neb treatments are helping eating well her voice is sounding more normal as well less congestion overall denies dyspnea Review of Systems Review of Systems: cv - no chest pain or pleuritic pain pulm - all symptoms improved GI - no abd pain or N/V Physical Exam Physical Exam: gen - looks better today; less bronchial cough present; no distress neck - no JVD HENT - hoarse voice improved, MMM heart - RRR, s1 s2, no murmur lungs - improved wheezing b/l, airation improved, bronchial cough improved, no distress, scattered rales bases abd - soft NT ND BS+ ext - no edema, pulses 2+ b/l feet psych - a/o x 3 Results & Data Results & Data Vital Signs (Past 12 Hours) Vital Signs Temp Pulse Resp BP Pulse Ox O2 Del Method 03/17/24 19:49 36.5 C 68 18 131/83 93 Room Air 03/17/24 19:49 90 18 93 Room Air 03/17/24 15:39 89 18 93 Room Air 03/17/24 11:28 Room Air 03/17/24 11:16 76 18 96 Room Air Laboratory Results Laboratory Results - last 24 hr 03/16/24 03/17/24 03/17/24 20:54 06:18 14:44 Sodium 122 L 127 L 133 L Potassium 4.1 Chloride 95 L Carbon Dioxide 23 Anion Gap 9 BUN 14 Creatinine 0.62 Est Cr Clr Drug Dosing 64.2 eGFR 88.31 BUN/Creatinine Ratio 22.6 H Glucose 109 H Calcium 8.7 B-Natriuretic Peptide 33 03/17/24 Unknown Urine Osmolality 177 L Diagnostic Findings Chest CTA 03/17/24 11:29 CT angio chest PE protocol CT DOSE: 581.57 mGy.cm HISTORY: 84 years-old Female with parainfluenza bronchitis, h/o breast/ovarian ca.. Acute shortness of breath TECHNIQUE: Multiple CTA images of the chest were obtained after the intravenous administration of 112 ml Optiray. Coronal and sagittal MIPS were obtained from the axial data set and were submitted for review. All measurements were obtained according to NASCET criteria. A dose lowering technique was utilized adhering to the principles of ALARA. COMPARISON: Chest radiograph 03/15/2024, chest CT 05/14/2020 FINDINGS: CTA: Mild cardiomegaly. No pericardial effusion. Ectasia of the ascending thoracic aorta, 3.9 cm. The descending thoracic aortic tortuosity. No pulmonary emboli. CT CHEST: Chronic left hemidiaphragmatic elevation. Unremarkable thyroid. There are a few borderline enlarged bilateral hilar and subcarinal lymph nodes. Trace pleural effusions. 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 No pneumothorax. Mild intralobular septal thickening with dependent bibasilar groundglass densities. Bronchial wall thickening with bibasilar mucous plugging. Chronic collapse of the right middle lobe. Mid esophageal wall thickening. The mid esophagus is distended and debris- filled. There is caliber change/narrowing involving the distal third of the esophagus on image 52 series 4. No discrete obstructing mass or lesion identified. The stomach is also debris filled. Degenerative changes of the spine and shoulders. No acute fracture is seen. IMPRESSION: 1. Cardiomegaly with suggestion of mild interstitial pulmonary edema and trace pleural effusions. 2. No pulmonary emboli. 3. Mild bibasilar mucous plugging with groundglass densities suggestive of atelectasis. 4. The stomach and mid esophagus are mildly distended and debris-filled which may represent reflux versus delayed esophageal emptying. Findings could be correlate with endoscopy if there is concern for distal esophageal stricturing. 5. Nonspecific borderline-enlarged mediastinal and hilar lymph nodes. 6. 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 ACT 112: Negative or not required by law. The above report was generated using voice recognition software. It may contain grammatical, syntax or spelling errors. Electronically signed by: Isael Whitmore M.D. 03/17/2024 1:05 PM PG Care Time/CCT Total # of Minutes Spent Total Time Spent with Patient: Total time spent is greater than 50% in coordination of care (as documented) at patient's floor/unit and/or counseling patient: Coding Level of Care Code 38717 SUB INP/OBS CARE 2/35MIN Diagnoses Hyponatremia E87.1 Parainfluenza B34.8 Hypertension I10 Dyslipidemia E78.[address] R93.89
[2024-03-18 07:17] VITALS: O2SAT 94
[2024-03-18 07:37] VITALS: BP 148/91; PULSE 63
[2024-03-18] MEDS: SODIUM CHLORIDE 1 GM TABLET PO SCH (08:00)
[2024-03-18 09:34] LABS: BUN Creatinine Ratio 24.4 (10-20); Calcium 9.2 mg/dl (8.6-10.3); Potassium 3.8 mmol/L (3.5-5.1)
[2024-03-18] MEDS ORDERED: ALBUTEROL HFA 8 GM INHALER INH ONE (10:20)
[2024-03-18 10:27] VITALS: RESP 16
--- NOTE | 2024-03-18 10:36 | Discharge Summary ---
Discharge Summary Date of Service date of admission - March 15, 2024 date of discharge - March 18, 2024 Principal Dx & Hospital Course #1 = Principal Diagnosis (1) Parainfluenza: with resulting severe bronchitis IMPROVED with use of steroids, bronchodilators, and supportive care she never was hypoxic during her hospitalization CTA chest without complicating PEs or evidence of bacterial pneumonia groundglass opacities seen on CT were likely due to the virus itself thus antibiotics deferred discharged to home with - * dexamethasone x 5 days * albuterol MDI prn with spacer device (2) Acute bronchitis due to parainfluenza virus: (3) Abnormal chest CT: esophageal abnormalities noted ("Mid esophageal wall thickening. The mid esophagus is distended and debris- filled. There is caliber change/narrowing involving the distal third of the esophagus on image 52 series 4. No discrete obstructing mass or lesion identified. 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 consider pulmonary referral as outpatient (4) Hyponatremia: admission Na level 122 discharge Na level 134 sodium level improved with NaCL supplementation along with fluid restriction recent HCTZ use could have contributed to hyponatremia acute illness could have triggered SIADH as well at discharge recommended - * NaCL tab 1gm daily x 5 days * discontinue HCTZ * repeat BMP within a few days of discharge for stability (5) Hypertension: Blood pressure acceptable on losartan only HCTZ was stopped patient asked to check her BPs at home and f/u with PCP for ongoing HTN management (6) Dyslipidemia: Continue Fenofibrate (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, right lower lobe was present on previous imaging consider outpatient pulmonology referral for their opinion (8) Thoracic lymphadenopathy: likely reactive to #1 however, in light of prior breast cancer and ovarian cancer, advise repeat CT chest in 2-3 months to ensure resolution Notes For Next Care Provider repeat BMP within 5 days of discharge for stability Medication Changes From Visit Dexamethasone taper x 5 days NaCL 1gm daily x 5 days albuterol MDI prn stop HCTZ Admission HPI Per Admitting Provider Jesenia Canada is a pleasant 84yo female with history of GERD, HLP presenting from home with headache, cough and congestion. Patient reports 3 days of dry cough, congestion and severe headache. She has some pain in her chest associated with coughing but otherwise denies chest pain. She reports that she is eating and drinking well. She denies fever, chills, palpitations, abdominal pain, nausea, vomiting, diarrhea. No imbalance, confusion or seizure. No urinary complaints. She is following with Neurology for recent word finding difficulty. Patient presents today with ongoing cough and chest discomfort, concern for PNA. In the ER she is afebrile, HD stable, NAD. Adequate oxygenation on room air with no respiratory distress. She was found to be hyponatremic with Xd=675. No history of prior hyponatremia. Her Amlodipine was recently discontinued due to LE edema and she was started on HCTZ for management of blood pressure (5 days ago). ER Course: Toradol 15mg IV Discharge Exam gen - looks good today, NAD, minimal cough neck - no JVD HENT - hoarse voice improved, MMM heart - RRR, s1 s2, no murmur lungs - minimal wheezing b/l, airation improved, bronchial cough improved, no distress, scattered rales bases only (mild) abd - soft NT ND BS+ ext - no edema, pulses 2+ b/l feet psych - a/o x 3 Discharge Plan Discharge Items Patient Disposition: Home - Self-Care Reason For Visit: HYPONATREMIA, PARAINFLUENZA VIRUS Discharge Diagnosis: 1. bronchitis due to parainfluenza virus - improving 2. hyponatremia (low sodium) - nearly resolved 3. high blood pressure 4. abnormal appearing esophagus on CT scan - gastroenterology follow-up needed 5. right lower lobe lung nodule - chronic, stable, likely benign 6. prior history of breast & ovarian cancer 7. enlarged lymph nodes in the lungs - likely due to #1 - but recommend repeat CT scan of the lungs in 2-3 months Activity: As commented below Activity Comment: gradually increase your activities over the next week Non-emergency contact: Primary Care Provider Call non-emergency contact if: you have any medication questions, your symptoms worsen and you have a fever Follow-up/Referrals: Manuel Tucker, DO [Physician] - (we will set you up with an appointment to see gastroenterology; you likely will need an upper endoscopy) Armen Lockett MD [Primary Care Provider] - (1 week for recheck ) Diet: Regular Fluids: 1500ml (6 cups) Addtl Attending Provider Instructions: Mrs Canada, You were hospitalized due to bronchitis caused by a virus called "parainfluenza." (see handout) Although there is no specific antidote for parainfluenza we often treat bron chitis with steroids, albuterol treatments, cough medicine, etc. You improved during the stay with these treatments. Your CT scan of the lungs did NOT show blood clots, signs of recurrent cancer, or an obvious bacterial pneumonia. In addition your sodium levels were low when you arrived at the hospital. Low sodium is called "hyponatremia." (see handout) The low sodium was likely due to recent use of hydrochlorothiazide blood pressure medicine. It is also possible that the virus itself caused the sodium levels to drop. Your sodium improved to nearly normal with salt tablets and fluid restriction. Your sodium level at discharge is 134 (normal 135-145). Finally, your CT scan showed 3 other findings - 1. a nodule at the bottom of the right lung; it was seen in 2020 and thus it is likely BENIGN (not harmful.) 2. there was fluid & food in your stomach/esophagus on the CT scan. This may be a sign of reflux disease. It may also indicate some other type of abnormality of the esophagus. I am going to refer you to [facility]. They will likely recommend an upper endoscopy. 3. there were some enlarged lymph nodes in the lungs. This is pretty common with respiratory viral infections. However, to be complete, I would recommend a repeat CT scan of your chest in about 2-3 months to ensure the lymph nodes have gone back to normal size. Recommendations - 1. For your bronchitis - * dexamethasone steroid x 5 days; start this TODAY. Take with food. * albuterol via spacer device - 2 puffs every 4 hours as needed for cough, wheeze, or shortness of breath. * [id number] Mucinex up to 1200mg twice daily as needed/as desired for cough. * continue to use your Flutter Valve & Incentive Spirometry device that were given to you at the hospital. I would use these for another 3-4 days. 2. STOP your hydrochlorothiazide. 3. For your stomach/esophagus take pantoprazole 40mg once daily each morning. Be sure to stay upright for at least 2 hours following meals. 4. For the recent low sodium take a salt tablet once daily x 5 days. Start this tomorrow, 03/19/24. 5. Please restrict your total fluid intake for the next 3 days to about 1500ml over a 24 hour period. This includes all liquids (juice, water, milk, coffee, tea, soda, etc). 6. As your cough improves the risk of passing the parainfluenza virus on to others starts to drop. To protect yourself & others, however, I would mask outside of your home for the next several days. 7. Check your blood pressure once or twice daily. Write these values down in a notebook for Dr Lockett to review. Follow-up - see Dr Lockett in about 1 week Return to [facility] if - * you have fever over 100 degrees * you have worsening shortness of breath * you have chest pains * you feel dizzy or lightheaded * you develop lethargy, extreme fatigue, or weakness * any other concerns It was our pleasure to care for you! Happy holidays :) Pending Studies at Discharge: No Stand-Alone Forms: My [facility], Smoking Cessation Medications and DC Order Prescriptions: New pantoprazole 40 mg Tablet,Delayed Release (Dr/Ec) 40 mg PO QAM Qty: 30 1RF dexamethasone 2 mg tablet 2 mg PO DIRECTED Qty: 12 0RF Rx Instructions: start 03/18, take w/ food. 3 tabs PO QD x 2 days, then 2 tabs PO QD x 3 days, then stop. albuterol sulfate [Ventolin HFA] 90 mcg/actuation HFA aerosol inhaler 2 inh inhalation Q4H PRN (Reason: shortness of breath or wheezing or cough) Qty: 8.5 0RF Rx Instructions: use with spacer device Continued cholecalciferol (vitamin D3) 25 mcg (1,000 unit) capsule 25 mcg PO QAM memantine 5 mg tablet 5 mg PO BID Qty: 60 2RF losartan 100 mg tablet 100 mg PO DAILY aspirin [Enteric Coated Aspirin] 81 mg tablet,delayed release (DR/EC) 81 mg PO DAILY Qty: 90 3RF fenofibrate 160 mg Tablet 160 mg PO QAM glucosamine-chondroitin [Osteo Bi-Flex] 250-200 mg Tablet 1 tab PO BID PreserVision AREDS-2 [id number] dx-hjrd-cp-mg Capsule 1 tab PO BID multivitamin Tablet 1 tab PO QAM solifenacin 10 mg Tablet 10 mg PO HS Discharge Orders: Discharge Order (Routine); Ordered 03/18/24 Ordered By: Cade Garcia/Other Patient Handouts: Acute Bronchitis, Using an Inhaler with a Spacer, ED Hyponatremia, ED Pulmonary Nodule, Solitary Admission Data Admit Date/Time: 03/15/24 20:20 Attending Provider: Cade Wild Admit Provider: Bertha Murray Primary Care Provider: Armen Lockett Interventions: Discharge Summary Assessment (RN) Last Done: 03/18/24 11:02 Hospital Stay Data Diagnostic Imagining Performed Chest X-Ray 03/15/24 16:11 EXAM: Radiograph of the Chest 1 View INDICATION: Cough and headache. TECHNIQUE: Frontal view of the chest. COMPARISON: None 2023 FINDINGS: Lungs and pleural spaces: No consolidation or pulmonary edema. No pleural effusion or pneumothorax. Heart: Shape and configuration within normal limits allowing for technique. Mediastinum: Normal contour. Bones/joints: No fracture, erosion or dislocation. Soft tissues: No abnormality noted. No radiopaque foreign body noted. Upper abdomen: No abnormality noted. IMPRESSION: No abnormality noted. ACT 112: Negative or not required by law. Electronically signed by Sushila Montelongo 03-15-2024 6:[address] 03/15/24 16:12 EXAM: CT Head Without Intravenous Contrast INDICATION: Headache. TECHNIQUE: Axial computed tomography images of the head/brain without intravenous contrast. Sagittal and/or coronal reformats are provided. Sagittal and coronal reformatted images were created and reviewed. This CT exam was performed using one or more of the following dose reduction techniques: automated exposure control, adjustment of the mA and/or kV according to patient size, and/or use of iterative reconstruction technique. COMPARISON: 12/03/2023 FINDINGS: Limitations: None. Brain and extra-axial spaces: There is age appropriate cortical atrophy and chronic ischemic periventricular white matter hypodensity. No acute infarct, hemorrhage or mass noted. Bones/joints: No acute changes. Soft tissues: No significant abnormality noted. Vasculature: No acute abnormality noted. Sinuses: No layering fluid in the visualized portions of the paranasal sinuses. Mastoid air cells: No mastoid effusion. Orbits: No significant abnormality noted. IMPRESSION: Cerebral atrophy. No acute changes. ACT 112: Negative or not required by law. Electronically signed by Sushila Montelongo 03-15-2024 6:16 PM Chest CTA 03/17/24 11:29 CT angio chest PE protocol CT DOSE: 581.57 mGy.cm HISTORY: 84 years-old Female with parainfluenza bronchitis, h/o breast/ovarian ca.. Acute shortness of breath TECHNIQUE: Multiple CTA images of the chest were obtained after the intravenous administration of 112 ml Optiray. Coronal and sagittal MIPS were obtained from the axial data set and were submitted for review. All measurements were obtained according to NASCET criteria. A dose lowering technique was utilized a dhering to the principles of ALARA. COMPARISON: Chest radiograph 03/15/2024, chest CT 05/14/2020 FINDINGS: CTA: Mild cardiomegaly. No pericardial effusion. Ectasia of the ascending thoracic ao rta, 3.9 cm. The descending thoracic aortic tortuosity. No pulmonary emboli. CT CHEST: Chronic left hemidiaphragmatic elevation. Unremarkable thyroid. There are a few borderline enlarged bilateral hilar and subcarinal lymph nodes. Trace pleural effusions. 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 No pneumothorax. Mild intralobular septal thickening with dependent bibasilar groundglass densities. Bronchial wall thickening with bibasilar mucous plugging. Chronic collapse of the right middle lobe. Mid esophageal wall thickening. The mid esophagus is distended and debris- filled. There is caliber change/narrowing involving the distal third of the esophagus on image 52 series 4. No discrete obstructing mass or lesion identified. The stomach is also debris filled. Degenerative changes of the spine and shoulders. No acute fracture is seen. IMPRESSION: 1. Cardiomegaly with suggestion of mild interstitial pulmonary edema and trace pleural effusions. 2. No pulmonary emboli. 3. Mild bibasilar mucous plugging with groundglass densities suggestive of atelectasis. 4. The stomach and mid esophagus are mildly distended and debris-filled which m ay represent reflux versus delayed esophageal emptying. Findings could be correlate with endoscopy if there is concern for distal esophageal stricturing. 5. Nonspecific borderline-enlarged mediastinal and hilar lymph nodes. 6. 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 ACT 112: Negative or not required by law. The above report was generated using voice recognition software. It may contain grammatical, syntax or spelling errors. Electronically signed by: Isael Whitmore M.D. 03/17/2024 1:05 PM Pending Results Patient Have Any Pending Studies at Discharge: No Discharge Instructions Given to Patient (Per Discharging Provider) Mrs Canada, Andrade were hospitalized due to bronchitis caused by a virus called "parainfluenza." (see handout) Although there is no specific antidote for parainfluenza we often treat bronchitis with steroids, albuterol treatments, cough medicine, etc. You improved during the stay with these treatments. Your CT scan of the lungs did NOT show blood clots, signs of recurrent cancer, or an obvious bacterial pneumonia. In addition your sodium levels were low when you arrived at the hospital. Low sodium is called "hyponatremia." (see handout) The low sodium was likely due to recent use of hydrochlorothiazide blood pressure medicine. It is also possible that the virus itself caused the sodium levels to drop. Your sodium improved to nearly normal with salt tablets and fluid restriction. Your sodium level at discharge is 134 (normal 135-145). Finally, your CT scan showed 3 other findings - 1. a nodule at the bottom of the right lung; it was seen in 2020 and thus it is likely BENIGN (not harmful.) 2. there was fluid & food in your stomach/esophagus on the CT scan. This may be a sign of reflux disease. It may also indicate some other type of abnormality of the esophagus. I am going to refer you to [facility]. They will likely recommend an upper endoscopy. 3. there were some enlarged lymph nodes in the lungs. This is pretty common with respiratory viral infections. However, to be complete, I would recommend a repeat CT scan of your chest in about 2-3 months to ensure the lymph nodes have gone back to normal size. Recommendations - 1. For your bronchitis - * dexamethasone steroid x 5 days; start this TODAY. Take with food. * albuterol via spacer device - 2 puffs every 4 hours as needed for cough, wheeze, or shortness of breath. * [id number] Mucinex up to 1200mg twice daily as needed/as desired for cough. * continue to use your Flutter Valve & Incentive Spirometry device that were given to you at the hospital. I would use these for another 3-4 days. 2. STOP your hydrochlorothiazide. 3. For your stomach/esophagus take pantoprazole 40mg once daily each morning. Be sure to stay upright for at least 2 hours following meals. 4. For the recent low sodium take a salt tablet once daily x 5 days. Start this tomorrow, 03/19/24. 5. Please restrict your total fluid intake for the next 3 days to about 1500ml over a 24 hour period. This includes all liquids (juice, water, milk, coffee, tea, soda, etc). 6. As your cough improves the risk of passing the parainfluenza virus on to others starts to drop. To protect yourself & others, however, I would mask outside of your home for the next several days. 7. Check your blood pressure once or twice daily. Write these values down in a notebook for Dr Lockett to review. Follow-up - see Dr Lockett in about 1 week Return to [facility] if - * you have fever over 100 degrees * you have worsening shortness of breath * you have chest pains * you feel dizzy or lightheaded * you develop lethargy, extreme fatigue, or weakness * any other concerns It was our pleasure to care for you! Happy holidays :) Total Time Total Time Spent Total Time Spent (In Minutes): 40 Coding Level of Care Code 22275 INP/OBS DISCH >30 MIN Diagnoses Parainfluenza B34.8 Acute bronchitis due to parainfluenza virus J20.[address] R93.89 Hyponatremia E87.1 Hypertension I10 Dyslipidemia E78.5 Hamartoma of lung Q85.9 Thoracic lymphadenopathy R59.0
--- NOTE | 2024-03-18 12:34 | Electrocardiogram Report ---
Test Reason : Blood Pressure : */* mmHG Vent. Rate : 69 BPM Atrial Rate : 69 BPM P-R Int : 168 ms QRS Dur : 102 ms QT Int : 460 ms P-R-T Axes : 52 -3 36 degrees QTcB Int : 492 ms Normal sinus rhythm Minimal voltage criteria for LVH, may be normal variant ( R in aVL ) Nonspecific ST and T wave abnormality Abnormal ECG When compared with ECG of 14-Dec-2023 15:19, No significant change was found Confirmed by Aiden Hernandez ([id number]) on 03/18/2024 12:34:37 PM Referred By: REFERRED SELF Confirmed By: Aiden Hernandez
== END 2024-03-18 13:28 | disposition home or self-care (01) | DRG 202 ==
LOC: ED 16:05 → 3E 20:20 → SUATTDRO 20:20 → 3E 23:18